=== PATIENT | female | born 1930 | race Caucasian/White ===

== ENCOUNTER 2019-11-27 10:17 | Inpatient (IN) ==
--- OUTSIDE RECORDS SUMMARY | 2019-11-27 10:22 | External Medical Summary | Continuity of Care Document ---
:1930 Author Name [employer] M.D. 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 Refills: 0 TEGretol 200 MG Oral Tablet; TAKE TABLET 2 Tablets in AM 1 Tablet PM , M.D. Refills: 0 Felodipine ER 10 MG Oral Tablet Extended Release 24 Hour; TAKE 1 TABLET ONCE DAILY. , M.D. Refills: 0 K-Dur 10 MEQ TBCR; TAKE 1 TABLET TWICE DAILY. , M.D. Refills: 0 Lasix 40 MG Oral Tablet; TAKE 1 TABLET DAILY. , M.D. Refills: 0 Toprol XL 200 MG Oral Tablet Extended Re lease 24 Hour; TAKE 1 TABLET ONCE DAILY. , M.D. Refills: 0 Zocor 40 MG Oral Tablet; TAKE 1 TABLET DAILY. , M.D. Refills: 0 Procedures Procedures not documented Immunizations Immunizations not documented Social History - Smoking Status Never smoked tobacco Interventions Labs/Procedures/ImagingCT (Chest) Thorax with Contrast; Done: 12 Feb 2013 Plan of Treatment Planned Observations Planned Goals not documented Results No Known Results Results not documented
[2019-11-27] MEDS ORDERED: LORazepam 0.5 MG/1 ML VIAL IV STA (10:44)
--- NOTE | 2019-11-27 10:47 | CT Scan Report ---
CT SCAN OF THE BRAIN WITHOUT IV CONTRAST CLINICAL HISTORY: Strokelike symptoms. Change in mental status. Syncope. COMPARISON STUDY: No priors. TECHNIQUE: Unenhanced axial CT scan of the brain is performed from the vertex to the skull base. A do se lowering technique was utilized adhering to the principles of ALARA. FINDINGS: Brain parenchyma: There are age-related involutional changes noting mild subcortical and periventric ular microangiopathic change. There is no hemorrhage, mass effect, or evidence of acute territorial i schemia by CT criteria. 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 Pablo-w reji matter differentiation is preserved. No extra-axial fluid collection is seen. Ventricles, sulci, cisterns: Prominent secondary to involutional change. Intracranial vasculature: There is atherosclerotic calcification of the cavernous carotid and vertebr al arteries. Calvarium: Post craniectomy change noted in the right occipital bone. The calvarium is otherwise inta ct. Soft tissues: A 2.3 cm calcified sebaceous cyst is noted in the left frontal scalp. Sinuses and mastoids: The visualized paranasal sinuses are clear. There is a large right mastoid effu carolyn. The left mastoid air cells are well pneumatized. Orbits: The bony orbits are grossly intact. There are bilateral ocular lens implants. IMPRESSION: There is no hemorrhage, mass effect, or evidence of acute territorial ischemia by CT rodriguez appiah. ACT 112: Negative or not required by law. Electronically signed by: Jose Armando Toth M.D. 11/27/2019 10:46 AM
[2019-11-27] MEDS ORDERED: OPTIRAY 320 125ml IV PRN (10:50)
--- NOTE | 2019-11-27 11:01 | CT Scan Report ---
CT ANGIOGRAM OF THE BRAIN; CT ANGIOGRAM OF THE NECK CLINICAL HISTORY: Syncope. Change in mental status. COMPARISON STUDY: Unenhanced CT of the brain performed the same day 11/27/2019. TECHNIQUE: Following the IV administration of 119 of Optiray 320, CT angiogram of the head and neck w as performed from the aortic arch to the vertex. Images are reviewed in the axial, sagittal, and agustin nal planes. 3-D MIPS images are created and assessed. IV contrast was administered without complicati on. All measurements were calculated based on NASCET criteria. A dose lowering technique was utilize d adhering to the principles of ALARA. The examination is modestly degraded by motion artifact. CT DOSE: 1571.22 mGy.cm FINDINGS: Brain parenchyma: There is age-related involutional change noting mild subcortical and periventricula r microangiopathic disease. There is no hemorrhage, mass effect, or evidence of acute territorial isc hemia by CT criteria. There is no evidence of enhancing mass lesion on the angiogram phase images. Th e ventricles, sulci, and cisterns are prominent secondary to involutional change. Pablo-white matter d ifferentiation is preserved. No extra-axial fluid collection is seen. Thoracic aorta: There is advanced atherosclerotic calcification of the thoracic aorta. Visualized por tions of the thoracic aorta are normal in caliber. The aortic arch demonstrates standard 3-vessel dorita zafar. Right carotid arterial system: The right common carotid artery is widely patent, as are the right int ernal and external carotid arteries. There is tortuosity of the distal internal carotid artery. Left carotid arterial system: The left common carotid artery is widely patent, as are the left medical assistant internal medicine al and external carotid arteries. Vertebral arteries: The vertebral arteries are widely patent and codominant. Subclavian arteries: Widely patent bilaterally. Intracranial vasculature: There is evidence carotid calcification of the cavernous carotid and verteb ral arteries. There is tortuosity of the cavernous carotid arteries. The internal carotid arteries ar e patent at the skull base, as are the anterior and middle cerebral arteries bilaterally. The vertebr obasilar system and posterior cerebral arteries are widely patent. The left vertebral artery is domin ant. There is no aneurysm, high-grade stenosis, or focal vessel cut off seen throughout the intracran ial circulation. Jugular veins: Patent bilaterally. Dural sinuses: Patent. Lung apices: Chronic interstitial change is noted in the upper lobes. The upper lobe lung parenchyma is otherwise clear as imaged. Soft tissues: A 2.3 cm calcified sebaceous cyst is noted in the left frontal scalp. The visualized ph aryngeal soft tissues are normal in appearance noting angiographic phase technique. The oropharyngeal airway appears widely patent. The salivary and thyroid glands are normal in appearance. No cervical lymphadenopathy is seen. Skeletal structures: The skeletal structures are osteopenic. Post craniectomy change is noted in the right occipital bone. No destructive calvarial lesion is identified. The cervical spine is maintained noting multilevel spondylosis. No lytic or blastic lesion is seen. Sinuses and mastoids: The paranasal sinuses are clear. There is a large right mastoid effusion with f luid in the right middle ear. The left mastoid air cells are well pneumatized. IMPRESSION: 1. There is no hemorrhage, mass effect, or evidence of acute territorial ischemia by CT criteria noti ng angiographic phase technique. 2. Unremarkable CT and radiograph of the neck. 3. Unremarkable CT angiogram of the brain. 4. There is a large right mastoid effusion and fluid within the right middle ear. 5. Post craniectomy change is noted in the right occipital bone. ACT 112: Negative or not required by law. Electronically signed by: Jose Armando Toth M.D. 11/27/2019 10:59 AM
--- NOTE | 2019-11-27 11:05 | Emergency Department Note ---
History of Present Illness General Chief complaint: Altered Mental Status Stated complaint: AMS/WEAKNESS Time Seen by Provider: 11/27/19 10:20 Source: patient, family (I talked to the daughter first on the telephone and then later when she arrived) and EMS Mode of arrival: EMS Limitations: altered mental status History of Present Illness This patient is an 89-year-old white female who is brought in after an altered mental status and syncope. She apparently had a syncopal episode and when the paramedics arrived she was back to her normal self and did not want to come to the hospital. They called me for medical command and during this she had another syncopal episode and got confused so they brought her here. Initially upon arrival she was combative and confused but moving all 4 extremities. She is on Xarelto and the concern was to rule out a head bleed so we took her straight to CAT scan after initially evaluating her. Home Medications Home Medications Medication Instructions Recorded Confirmed Type felodipine 2.5 mg PO DAILY 11/27/19 11/27/19 History furosemide 40 mg PO 5XWK 11/27/19 11/27/19 History magnesium oxide 400 mg PO DAILY 11/27/19 11/27/19 History metoprolol succinate 150 mg PO DAILY 11/27/19 11/27/19 History fqyrczid-qci-YR-lycopen-lutein 1 tab PO DAILY 11/27/19 11/27/19 History [Centrum Silver] potassium chloride 20 meq PO DAILY 11/27/19 11/27/19 History rivaroxaban [Xarelto] 15 mg PO QDD 11/27/19 11/27/19 History Allergies Allergy/AdvReac Type Severity Reaction Status Date / Time No Known Allergies Allergy Unknown NONE Verified 11/27/19 11:21 Past Med/Surg History Medical History (Updated 11/27/19 @ 14:48 by Hardeep Slater MD) Bilateral carotid artery stenosis Chronic atrial fibrillation Chronic interstitial lung disease CKD (chronic kidney disease), stage III Diastolic dysfunction Dyslipidemia Hypertension Senile osteoporosis Subclinical hypothyroidism Trigeminal neuralgia Social History (Updated 11/27/19 @ 14:09 by Hardeep Slater MD) Preferred Language: Kyrgyz marital status: Current Living Situation: Spouse Feels Safe at Home: Yes Smoking Status: Unknown if ever smoked Hx Alcohol Use: Yes Immunizations: Past medical history includes chronic A. fib, with anticoagul ation Hypertension Social history: She lives at home with her and is responsible for his ca re and has been stressful for her. She does drink alcohol and her daughter thinks she has been drinking more lately Review of Systems Unobtainable due to cognitive status Initially the patient was altered and I could not do any review of systems. L ater as the patient improved I did do a review of systems and a total of 10 systems were reviewed and otherwise negative Physical Exam Vital Signs Vital Signs - 24 hr 11/27/19 10:20 11/27/19 10:41 11/27/19 11:56 Temperature 37.1 C Temperature Source Oral Pulse Rate 138 H 139 H 91 H Pulse Rate from SpO2 Sensor 95 H Respiratory Rate 20 25 H 23 Blood Pressure 157/98 H 157/98 H 154/85 H Blood Pressure Mean 117 108 99 Pulse Oximetry 96 93 Oxygen Delivery Method Room Air 11/27/19 12:30 11/27/19 13:00 11/27/19 13:30 Temperature Temperature Source Pulse Rate 85 89 84 Pulse Rate from SpO2 Sensor 86 92 H Respiratory Rate 20 17 22 Blood Pressure Blood Pressure Mean Pulse Oximetry 96 98 Oxygen Delivery Method 11/27/19 13:56 11/27/19 14:00 Temperature Temperature Source Pulse Rate 81 85 Pulse Rate from SpO2 Sensor 81 85 Respiratory Rate 20 30 H Blood Pressure 148/84 H 155/77 H Blood Pressure Mean 124 89 Pulse Oximetry 96 95 Oxygen Delivery Method Room Air Room Air General: Well developed well nourished combative older female who appears to move all 4 extremities she is agitated but appears to be speaking normally but is not directable and in no acute distress, breathing comfortably on room air. Normal speech HEENT: Normal cephalic atraumatic. Pupils are equal round and reactive to light. Extraocular movements are intact. Oropharynx is pink with moist mucous membranes. No swelling of the mouth lips or tongue. Neck: Supple with a midline trachea. No meningeal signs or stiffness, no JVD or bruits. No Stridor. Chest: Clear to auscultation bilaterally. No wheezes or rhonchi. No increased work of breathing. Heart: Regular rate and rhythm without murmurs or gallops. Abdomen: Soft nontender, nondistended without rebound guarding or rigidity. Extremities: No cyanosis clubbing or edema. No calf tenderness or assymetry Spine/Back. Non tender to palpation. No CVA tenderness Skin: Good turgor without rashes. Neurologic exam: Cranial nerves two through 12 are intact. Motor and sensation are intact and symmetrical throughout. Course Administered Medications Potassium Chloride (K Jaime / Wtr) 10 meq in 100 mls @ 100 mls/hr IV Q1H ISABEL Stop: 11/27/19 14:44 Last Admin: 11/27/19 14:00 Dose: 100 mls/hr Documented by: [id number] Infusion: 11/27/19 13:55 Dose: 0 mls/hr Documented by: [id number] Admin: 11/27/19 13:00 Dose: 100 mls/hr Documented by: [id number] Ioversol (Optiray 320 125ml) 119 ml IV ONCE PRN PRN Reason: Interaction Checking Stop: 12/01/19 10:49 Last Admin: 11/27/19 10:50 Dose: 119 ml Documented by: [id number] Discontinued Medications Lorazepam (Ativan) 0.5 mg in 1 mls @ 1 mls/min IV NOW STA Stop: 11/27/19 10:45 Last Admin: 11/27/19 10:49 Dose: 1 mls/min Documented by: [id number] Potassium Chloride (K Jaime / Wtr) Confirm Administered Dose 10 meq IV .STK-MED ONE Stop: 11/27/19 12:56 Last Admin: 11/27/19 13:00 Dose: Not Given Documented by: [id number] Critical Care Time Critical Care Time: Yes Total Critical Care Time: 30 Due to the patient's agitation altered mental status and need for frequent reassessment, discussion with the paramedics as well as the daughter and need for medication and monitoring, I have personally spent greater than 30 minutes of critical care time in the direct management of this patient. This includes bedside care, interpretation of diagnostic studies, and testing, discussion with consultants, patient, and family members, and other required patient management activities. This 30 minutes is in excess of all separately billable procedures. Medical Decision Making Differential Diagnosis Intracranial hemorrhage, CVA, trauma, arrhythmia, syncope, electrolyte or metabolic abnormality, infection, vascular disease, toxicologic, anxiety, Covid Medical Records Attestation: I reviewed the patient's medical records. Home Medications Current Medication List: was personally reviewed by me Laboratory Data Attestation: I reviewed the patient's lab results. Result diagrams: 11/27/19 10:56 11/27/19 10:56 Lab Results 11/27/19 11/27/19 11/27/19 Range/Units 10:56 10:56 10:56 WBC 6.23 (4.8-10.8) K/uL RBC 3.85 L (4.2-5.4) M/uL Hgb 13.1 (12.0-16.0) g/dL Hct 38.8 (37-47) % MCV 100.8 H (80-100) fL MCH 34.0 (25-34) pg MCHC 33.8 (32-36) g/dL RDW Std Deviation 53.7 H (36.4-46.3) fL RDW Coeff of Serenity 14.7 H (11.5-14.5) % Plt Count 259 (130-400) K/uL MPV 10.2 (7.4-10.4) fL Immature Gran % (Auto) 0.2 % Neut % (Auto) 70.9 % Lymph % (Auto) 19.6 % [place] % (Auto) 9.1 % Eos % (Auto) 0.0 % Baso % (Auto) 0.2 % Neut # (Auto) 4.42 (1.4-6.5) K/uL Lymph # (Auto) 1.22 (1.2-3.4) K/uL [place] # (Auto) 0.57 (0.11-0.59) K/uL Eos # (Auto) 0.00 (0-0.5) K/uL Baso # (Auto) 0.01 (0-0.2) K/uL Immature Gran # (Auto) 0.01 (0.00-0.02) K/uL PT 11.4 (9.0-12.0) Seconds INR 1.1 (0.9-1.1) APTT 29.4 (21.0-31.0) Seconds PTT Ratio 1.1 Sodium (136-145) mmol/L Potassium (3.5-5.1) mmol/L Chloride (98-107) mmol/L Carbon Dioxide (21-32) mmol/L Anion Gap (3-11) BUN (7-18) mg/dl Creatinine (0.6-1.2) mg/dl Est Cr Clr Drug Dosing ml/min Est GFR ( Amer) Est GFR (Non-Af Amer) BUN/Creatinine Ratio (10-20) Glucose (70-99) mg/dl Calcium (8.5-10.1) mg/dl Phosphorus (2.5-4.9) mg/dl Magnesium (1.8-2.4) mg/dl Total Bilirubin (0.2-1) mg/dl Direct Bilirubin (0-0.2) mg/dl AST (15-37) U/L ALT (12-78) U/L Alkaline Phosphatase (45-117) U/L Troponin I (0-0.045) ng/ml NT-Pro-B Natriuret Pep (0-1800) pg/ml Total Protein (6.4-8.2) gm/dl Albumin (3.4-5.0) gm/dl Globulin (2.5-4.0) gm/dl Albumin/Globulin Ratio (0.9-2) Vitamin B12 (211-911) pg/ml Folate (>5.38) ng/ml Urine Color Urine Appearance (Clear) Urine pH (4.5-7.5) Ur Specific Pierce (1.000-1.030) Urine Protein (Negative) Urine Glucose (UA) (Negative) Urine Ketones (Negative) Urine Blood (Negative) Urine Nitrite (Negative) Urine Bilirubin (Negative) Urine Urobilinogen (Negative) Ur Leukocyte Esterase (Negative) Ethyl Alcohol mg/dL (0-3) mg/dl Blood Type O Positive Antibody Screen NEGATIVE 11/27/19 11/27/19 11/27/19 Range/Units 10:56 10:56 10:56 WBC (4.8-10.8) K/uL RBC (4.2-5.4) M/uL Hgb (12.0-16.0) g/dL Hct (37-47) % MCV (80-100) fL MCH (25-34) pg MCHC (32-36) g/dL RDW Std Deviation (36.4-46.3) fL RDW Coeff of Serenity (11.5-14.5) % Plt Count (130-400) K/uL MPV (7.4-10.4) fL Immature Gran % (Auto) % Neut % (Auto) % Lymph % (Auto) % [place] % (Auto) % Eos % (Auto) % Baso % (Auto) % Neut # (Auto) (1.4-6.5) K/uL Lymph # (Auto) (1.2-3.4) K/uL [place] # (Auto) (0.11-0.59) K/uL Eos # (Auto) (0-0.5) K/uL Baso # (Auto) (0-0.2) K/uL Immature Gran # (Auto) (0.00-0.02) K/uL PT (9.0-12.0) Seconds INR (0.9-1.1) APTT (21.0-31.0) Seconds PTT Ratio Sodium 135 L (136-145) mmol/L Potassium 3.2 L (3.5-5.1) mmol/L Chloride 98 (98-107) mmol/L Carbon Dioxide 25 (21-32) mmol/L Anion Gap 12.0 H (3-11) BUN 7 (7-18) mg/dl Creatinine 0.93 (0.6-1.2) mg/dl Est Cr Clr Drug Dosing 33.7 ml/min Est GFR ( Amer) 64.0 Est GFR (Non-Af Amer) 55.3 BUN/Creatinine Ratio 7.9 L (10-20) Glucose 132 H (70-99) mg/dl Calcium 8.1 L (8.5-10.1) mg/dl Phosphorus 2.8 (2.5-4.9) mg/dl Magnesium 2.0 (1.8-2.4) mg/dl Total Bilirubin 0.7 0.7 (0.2-1) mg/dl Direct Bilirubin 0.2 (0-0.2) mg/dl AST 26 26 (15-37) U/L ALT 26 27 (12-78) U/L Alkaline Phosphatase 98 97 (45-117) U/L Troponin I < 0.015 (0-0.045) ng/ml NT-Pro-B Natriuret Pep 2048 H (0-1800) pg/ml Total Protein 6.7 6.7 (6.4-8.2) gm/dl Albumin 3.0 L 3.0 L (3.4-5.0) gm/dl Globulin 3.7 (2.5-4.0) gm/dl Albumin/Globulin Ratio 0.8 L (0.9-2) Vitamin B12 (211-911) pg/ml Folate (>5.38) ng/ml Urine Color Urine Appearance (Clear) Urine pH (4.5-7.5) Ur Specific Pierce (1.000-1.030) Urine Protein (Negative) Urine Glucose (UA) (Negative) Urine Ketones (Negative) Urine Blood (Negative) Urine Nitrite (Negative) Urine Bilirubin (Negative) Urine Urobilinogen (Negative) Ur Leukocyte Esterase (Negative) Ethyl Alcohol mg/dL (0-3) mg/dl Blood Type Antibody Screen 11/27/19 11/27/19 11/27/19 Range/Units 11:28 11:52 14:04 WBC (4.8-10.8) K/uL RBC (4.2-5.4) M/uL Hgb (12.0-16.0) g/dL Hct (37-47) % MCV (80-100) fL MCH (25-34) pg MCHC (32-36) g/dL RDW Std Deviation (36.4-46.3) fL RDW Coeff of Serenity (11.5-14.5) % Plt Count (130-400) K/uL MPV (7.4-10.4) fL Immature Gran % (Auto) % Neut % (Auto) % Lymph % (Auto) % [place] % (Auto) % Eos % (Auto) % Baso % (Auto) % Neut # (Auto) (1.4-6.5) K/uL Lymph # (Auto) (1.2-3.4) K/uL [place] # (Auto) (0.11-0.59) K/uL Eos # (Auto) (0-0.5) K/uL Baso # (Auto) (0-0.2) K/uL Immature Gran # (Auto) (0.00-0.02) K/uL PT (9.0-12.0) Seconds INR (0.9-1.1) APTT (21.0-31.0) Seconds PTT Ratio Sodium (136-145) mmol/L Potassium (3.5-5.1) mmol/L Chloride (98-107) mmol/L Carbon Dioxide (21-32) mmol/L Anion Gap (3-11) BUN (7-18) mg/dl Creatinine (0.6-1.2) mg/dl Est Cr Clr Drug Dosing ml/min Est GFR ( Amer) Est GFR (Non-Af Amer) BUN/Creatinine Ratio (10-20) Glucose (70-99) mg/dl Calcium (8.5-10.1) mg/dl Phosphorus (2.5-4.9) mg/dl Magnesium (1.8-2.4) mg/dl Total Bilirubin (0.2-1) mg/dl Direct Bilirubin (0-0.2) mg/dl AST (15-37) U/L ALT (12-78) U/L Alkaline Phosphatase (45-117) U/L Troponin I (0-0.045) ng/ml NT-Pro-B Natriuret Pep (0-1800) pg/ml Total Protein (6.4-8.2) gm/dl Albumin (3.4-5.0) gm/dl Globulin (2.5-4.0) gm/dl Albumin/Globulin Ratio (0.9-2) Vitamin B12 1914 H (211-911) pg/ml Folate > 24.00 (>5.38) ng/ml Urine Color Yellow Urine Appearance Clear (Clear) Urine pH 7.5 (4.5-7.5) Ur Specific Pierce 1.021 (1.000-1.030) Urine Protein Negative (Negative) Urine Glucose (UA) Negative (Negative) Urine Ketones Negative (Negative) Urine Blood Negative (Negative) Urine Nitrite Negative (Negative) Urine Bilirubin Negative (Negative) Urine Urobilinogen Negative (Negative) Ur Leukocyte Esterase Negative (Negative) Ethyl Alcohol mg/dL 24.0 H (0-3) mg/dl Blood Type Antibody Screen ECG Data Attestation: I personally reviewed and interpreted this ECG as follows: Indication: + altered mental status Rate (beats per minute): 85 Rhythm: + atrial fibrillation ECG Intervals/blocks: + Normal QRS ECG [place]: + Normal ECG ST segments: + Nonspecific ST abnormalities (There are nonspecific ST and T wave abnormalities inferiorly and laterally) ECG Findings: no PACs and no PVCs Comparison ECG Date: from (11/12/08) Change: the following changes noted (A. fib has replaced normal sinus rhythm and ST and T wave abnormalities are now present) Blood Pressure Blood Pressure Findings: Elevated blood pressure Blood Pressure Disposition: further management by hospitalist MDM Narrative This patient comes in as described above. She had presented after having a sync opal episode but then initially refused ambulance transport. I did talk to the crm consultant and while doing so she had another episode and became combative. In light of this ,they did bring her here. Upon arrival she was combative and hard to focus she moves all 4 extremities given the fact that she had altered mental status on Xarelto, I was concerned that she could have had a stroke or intracranial hemorrhage we moved quickly to get her to the CAT scan her. Blood sugar was normal as checked by the ambulance. I did discuss case with Dr. Casiano initially from [facility] who recommended we do the CTA as well. CAT scan the head as well as CT of the head and neck do not show any acute findings. When the patient came back from CAT scan she still seemed very agitated and anxious. I gave her 0.5 mg IV Ativan with the thought process that this will cover for anxiety as well as give her some sedation and help with the potential alcohol withdrawal or postictal state. Almost immediately after receiving Ativan, she got better. She has been very stressed lately talking to the daughter she is been overwhelmed taking care of the and also with the COVID. She is also been drinking more alcohol lately. Her heart rate slowed down and she was found to have an A. fib that was rate controlled without any definite ischemic changes. She has no fever or white count to suggest infection. She has no significant electrolyte or metabolic abnormalities. Urinalysis does not suggest a UTI. She remained stable and is doing much better. This may have just been anxiety and more of a nervous breakdown type situation but it could have also been related to something intracranial such as seizure/postictal or cardiac related. I do think she should be admitted/observed for further evaluation monitoring. I have consulted the [facility] hospitalist to see her in the ER for these measures. Daughter is also at the bedside and agrees with the plan Continuous cardiac monitoring: An order was placed in the E HR for continuous cardiac monitoring. The patient was noted to have atrial fibrillation with rapid ventricular response with a heart rate of approximately 130, note she was agitated during this. Impression & Plan Altered mental status, Agitation, Syncope, Atrial fibrillation with rapid ventricular response, Anxiety Discharge Plan Visit Data Chief Complaint: Altered Mental Status Stated Complaint: AMS/WEAKNESS ED Provider: Jorge Fry Discharge Problem: Altered mental status, Agitation, Syncope, Atrial fibrillation with rapid ventricular response, Anxiety Discharge Instructions Interventions: ED Discharge Assessment Last Done: 11/27/19 14:30 Forms Stand Alone Forms: [facility] Prescriptions Prescriptions: No Action furosemide 40 mg tablet 40 mg PO [id number] RF: 0 felodipine 2.5 mg tablet extended release 24 hr 2.5 mg PO DAILY RF: 0 metoprolol succinate 100 mg tablet extended release 24 hr 150 mg PO DAILY RF: 0 potassium chloride 20 mEq tablet,ER particles/crystals 20 meq PO DAILY RF: 0 Centrum Silver 0.4-300-250 mg-mcg-mcg Tablet 1 tab PO DAILY RF: 0 Xarelto 15 mg tablet 15 mg PO QDD RF: 0 magnesium oxide 400 mg magnesium Tablet 400 mg PO DAILY RF: 0 Referrals Referrals: Shirley Wilder [Primary Care Provider] -
[2019-11-27 11:08] LABS: Basophils # (auto) 0.01 K/uL (0-0.2); Basophils % (auto) 0.2 %; Hematocrit (blood only) 38.8 % (37-47); Hemoglobin 13.1 g/dL (12.0-16.0); Immature Granulocytes # (auto) 0.01 K/uL (0.00-0.02); Immature Granulocytes % (auto) 0.2 %; Lymphocytes # (auto) 1.22 K/uL (1.2-3.4); Lymphocytes % (auto) 19.6 %; Mean Corpuscular Hgb Conc 33.8 g/dL (32-36); Mean Corpuscular Volume 100.8 fL (80-100); Mean Platelet Volume 10.2 fL (7.4-10.4); Monocytes # (auto) 0.57 K/uL (0.11-0.59); Monocytes % (auto) 9.1 %; Neutrophils # (auto) 4.42 K/uL (1.4-6.5); Neutrophils % (auto) 70.9 %; Platelet Count 259 K/uL (130-400); RDW Coefficient of Variation 14.7 % (11.5-14.5); RDW Standard Deviation 53.7 fL (36.4-46.3); Red Blood Count 3.85 M/uL (4.2-5.4); White Blood Count 6.23 K/uL (4.8-10.8)
[2019-11-27 11:23] LABS: INR 1.1 (0.9-1.1); Partial Thromboplastin Ratio 1.1; Partial Thromboplastin Time 29.4 Seconds (21.0-31.0); Prothrombin Time 11.4 Seconds (9.0-12.0)
[2019-11-27 11:32] LABS: Alanine Aminotransferase 26 U/L (12-78); Aspartate Aminotransferase 26 U/L (15-37); BUN Creatinine Ratio 7.9 (10-20); Blood Urea Nitrogen 7 mg/dl (7-18); Calcium 8.1 mg/dl (8.5-10.1); Carbon Dioxide 25 mmol/L (21-32); Chloride 98 mmol/L (98-107); Creatinine Clr Calc Pharmacy 33.7 ml/min; Est GFR (Non-African American) 55.3; Glucose 132 mg/dl (70-99); Potassium 3.2 mmol/L (3.5-5.1); Sodium 135 mmol/L (136-145)
[2019-11-27 11:37] LABS: Albumin Globulin Ratio 0.8 (0.9-2); Alkaline Phosphatase 98 U/L (45-117); Bilirubin,Total 0.7 mg/dl (0.2-1); Globulin 3.7 gm/dl (2.5-4.0); Total Protein 6.7 gm/dl (6.4-8.2); Troponin I < 0.015 ng/ml (0-0.045)
[2019-11-27 12:22] LABS: Appearance Urine Clear (Clear); Bilirubin Urine Negative (Negative); Blood Urine Negative (Negative); Color Urine Yellow; Glucose Urine UA Negative (Negative); Ketones Urine Negative (Negative); Leukocyte Esterase Urine Negative (Negative); Nitrite Urine Negative (Negative); Protein Urine Negative (Negative); Specific Gravity Urine 1.021 (1.000-1.030); Urobilinogen Urine Negative (Negative); pH Urine 7.5 (4.5-7.5)
--- NOTE | 2019-11-27 12:53 | Electrocardiogram Report ---
Test Reason : Blood Pressure : / mmHG Vent. Rate : 085 BPM Atrial Rate : 089 BPM P-R Int : 000 ms QRS Dur : 084 ms QT Int : 404 ms P-R-T Axes : 000 070 028 degrees QTc Int : [address] depression consider inferolateral ischemia Abnormal ECG When compared with ECG of 12-DEC-2008 11:05, Atrial fibrillation has replaced Sinus rhythm Vent. rate has increased BY 30 BPM Nonspecific T wave abnormality now evident in Inferior leads T wave inversion no longer evident in Anterolateral leads QT has lengthened Confirmed by Rex Pinto ([id number]) on 11/27/2019 12:53:37 PM Referred By: REFERRED SELF Confirmed By:Rex Pinto
[2019-11-27] MEDS ORDERED: POTASSIUM CHLORIDE 10 MEQ / 100ML WTR IV ONE (12:55)
[2019-11-27] MEDS: POTASSIUM CHLORIDE / WTR 10 MEQ/100 ML PLCT IV SCH ×2 (13:00→14:00)
[2019-11-27] MEDS ORDERED: SODIUM CHLORIDE 0.9% 500 ML IV ONE (13:00)
[2019-11-27 13:21] LABS: Phosphorus 2.8 mg/dl (2.5-4.9)
[2019-11-27] MEDS ORDERED: LORazepam 1 MG/2 ML VIAL IV PRN ×2 (13:34)
[2019-11-27] MEDS ORDERED: LORazepam 3 MG/6 ML VIAL IV PRN (13:34)
[2019-11-27] MEDS ORDERED: LORazepam 2 MG/4 ML VIAL IV PRN (13:34)
[2019-11-27] MEDS ORDERED: LORazepam 1 MG TAB PO PRN ×2 (13:34)
[2019-11-27] MEDS ORDERED: ATIVAN IV ALCOHOL WITHDRAWL IV PRN (13:34)
[2019-11-27] MEDS ORDERED: POLYETHYLENE (MIRALAX) 17 GM PACK PO PRN (13:36)
[2019-11-27] MEDS ORDERED: ACETAMINOPHEN 325 MG TAB PO PRN (13:36)
--- NOTE | 2019-11-27 14:01 | History & Physical Report ---
Date of Service November 27, 2019 Assessment & Plan (1) Altered mental status: CT head, CTA of head and neck negative Blood cultures pending UA negative Alcohol blood level 24 proBNP 1999, chest x-ray with atelectasis and worsening interstitial lung disease At this point unclear etiology of her altered mental status -We will obtain MRI, and may consider EEG -We will monitor closely on telemetry, will obtain echo and carotid artery Doppler -May have odin secondary to alcohol use -We will place her on Ativan withdrawal protocol -We will await blood cultures -We will start vitamin supplementation, thiamine, folic acid, and vitamin B12 as her MCV is elevated -We will replace electrolytes, patient was found hypokalemic in ED -We will consider to consult neurology, if no clear explanation revealed (2) Hypokalemia: -Potassium 3.2 in ED -Likely due to Lasix use, and poor appetite -Replace and monitor -Magnesium level 2.0 on admission (3) Chronic atrial fibrillation: -Continue home metoprolol and Xarelto -Patient follows with [facility] cardiology, Juan Snowden/Dr. Hernandez -Currently rate controlled (4) Hypertension: -Continue felodipine, and furosemide -Continue to monitor (5) Dyslipidemia: -Continue home rosuvastatin (was on 40 mg daily, then switched to 20 mg by cardiology in July) (6) Bilateral carotid artery stenosis: -Patient has history of bilateral carotid stenosis, asymptomatic -We will obtain carotid artery ultrasound/Doppler to further evaluate if this could be causing her symptoms (7) CKD (chronic kidney disease), stage III: -Current creatinine 0.9, continue to monitor -Try to avoid nephrotoxic agents and contrast if possible -Patient underwent CTA earlier today (8) Mastoid disorder: -large right mastoid effusion and fluid within the right middle ear and Po st craniectomy change is noted in the right occipital bone on CT head -Per daughter, patient had surgery for trigeminal neuralgia about 15 years ago -She also only uses hearing aid on one ear, (per patient it is left ear), and the other one she has "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, but not ENT, recommend outpatient ENT follow-up/or inpatient consultation, if brain MRI different/concerning from prior -White blood cell count is not elevated, and patient is currently not complaining about any ear pain or headache, therefore for now will hold off antibiotic (9) Diastolic dysfunction: -History of CHF with diastolic dysfunction, on lisinopril -Continue lisinopril -Check echocardiogram -Monitor fluid status -Chest x-ray show some atelectasis and worsening interstitial lung disease -proBNP in ED ~ 1999 -Patient euvolemic on physical exam CODE STATUS DNR/DNI, discussed with the patient at the bedside DVT ppx: On chronic Xarelto for A. fib Disposition: PCU for now, will obtain PT OT for further assessment, but likely home when medically stable History of Present Illness Chief Complaint: Altered mental status Primary Care Provider: Shirley Wilder Mrs. Rivera is a 89-year-old female, with history of hypertension, dyslipide paulino, subclinical hypothyroidism, CKD stage III, bilateral carotid stenosis, chronic A. 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 Patient lives upstairs in her house, and her lives downstairs. 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 She checks his blood sugar levels and email these values to her daughter Maria Luz, who lives about 1 and half miles away. She does this daily however this morning she did not write to her daughter and therefore daughter became concerned. She came to her house and checked on her. She was let into the house by her father, and he reported that Mrs. Rivera never came downstairs. Daughter Maria Luz came upstairs, and her mom was wobbly walking, and told her that she "did not know what was happening around her and that something was wrong." Maria Luz reports that patient had couple glasses of wine last evening, and thought that maybe her mother was little dehydrated, and gave her 2 glasses of water. Patient did not feel herself and so they called the ambulance. When an ambulance came, patient refused to go and was combative, then she laid down in position and was saying that she "does not care", and was not responding to EMS staff. However Maria Luz reports that when she was tickling her feet, patient responded. Reportedly patient was also combative in the emergency room, and received 0.5 mg of IV Ativan, then she calmed down and was pleasant and cooperative. In the ED, she underwent CT head, and CTA of head and neck, both were negative. She was hypokalemic with potassium 3.2. On my evaluation, patient is sitting up in bed, in no acute distress. She is pleasant and cooperative and answers questions appropriately. She reports that she has issues with remembering things, and "forgets a lot lately". She says that she has to write things down especially about upcoming appointments with her girlfriends. However denies any fevers, chills, chest pain, shortness of breath, palpitations, headaches. She denies any sick contacts. Denies any abdominal pain, nausea or vomiting. States that her appetite has been poor. She denies any dysuria, or issues with bowel movements. Had normal bowel movement yesterday. Full history obtained from patient, ED staff, and daughter Maria Luz over the phone. Allergies Allergy/AdvReac Type Severity Reaction Status Date / Time No Known Allergies Allergy Unknown NONE Verified 11/27/19 11:21 Home Medications Home Medications Medication Instructions Recorded Confirmed Type felodipine 2.5 mg PO DAILY 11/27/19 11/27/19 History furosemide 40 mg PO [id number] 11/27/19 11/27/19 History magnesium oxide 400 mg PO DAILY 11/27/19 11/27/19 History metoprolol succinate 150 mg PO DAILY 11/27/19 11/27/19 History kitbwkwd-uer-KV-lycopen-lutein 1 tab PO DAILY 11/27/19 11/27/19 History [Centrum Silver] potassium chloride 20 meq PO DAILY 11/27/19 11/27/19 History rivaroxaban [Xarelto] 15 mg PO QDD 11/27/19 11/27/19 History Past Med/Surg History Medical History (Updated 11/27/19 @ 16:20 by Hardeep Slater MD) Bilateral carotid artery stenosis Chronic atrial fibrillation Chronic interstitial lung disease CKD (chronic kidney disease), stage III Diastolic dysfunction Dyslipidemia History of perforation of tympanic membrane Hypertension Mastoid disorder Senile osteoporosis Subclinical hypothyroidism Trigeminal neuralgia Surgical History (Updated 11/27/19 @ 16:16 by Hardeep Slater MD) History of uterine suspension procedure Status post craniectomy Family History (Updated 11/27/19 @ 16:17 by Hardeep Slater MD) Father Stroke at age 69 Mother , at age 85 Rheumatoid arthritis Social History (Updated 11/27/19 @ 14:09 by Hardeep Slater MD) Preferred Language: [place] Planet[employer] Techn[employer] Required: No Beliefs That Will Affect Care: None marital status: Current Living Situation: Spouse Other Information That Helps Us Care for You: No Feels Safe at Home: Yes Safety Concerns: Feels Safe At This Time Smoking Status: Never smoker Hx Alcohol Use: Yes Alcohol type: wine Hx Substance Use: No Review of Systems Review of Systems: All systems reviewed & are unremarkable except as noted in HPI & below Constitutional: no fever and no chills Eyes: no problem reported Ear, Nose, Mouth, Throat: no problem reported Respiratory: no cough and no dyspnea Cardiovascular: no chest pain, no palpitations and no edema Gastrointestinal: no abdominal pain, no nausea, no vomiting and no diarrhea/loose stools Genitourinary: no dysuria, no hematuria and no problem reported Musculoskeletal: no problem reported Integumentary: no problem reported Neurologic: no problem reported Psychiatric: no problem reported Endocrine: no problem reported Hematologic / Lymphatic: no problem reported Allergy / Immunological: no problem reported Physical Exam Physical Exam: Elderly female, sitting up in bed, in no acute distress Constitutional: WD/WN, vitals as above no acute distress Eyes: PERRL, conjunctivae normal, anicteric sclerae EOM intact bilaterally ENMT: external ear and nose normal, oropharynx normal Neck: trachea midline, no thyromegaly normal visual inspection Respiratory: normal respiratory effort, lungs clear to auscultation Auscultation: + rhonchi (Mild diffuse on the left); no crackles and no wheezes Cardiovascular: Heart Sounds: no murmur Irregularly irregular Chest (Breasts): Chest: normal inspection of chest Gastrointestinal (Abdomen): normal bowel sounds, soft, nontender, no hepatosplenomegaly Inspection/Auscultation: abdomen normal to inspection; abdomen not distended Percussion/Palpation: no guarding and abdomen not rigid Musculoskeletal: no cyanosis or clubbing, extremities motor strength 5/5 Head/Neck/Chest: head atraumatic and neck supple Extremities: extremities normal to inspection Skin: no rashes, warm and dry Neurologic: PERRL, EOMI, accommodation nl, no face palsy, no dysarthria moves all extremities Psychiatric: A+Ox3, euthymic affect Lymphatic: no cervical lymphadenopathy Results & Data Results & Data ([facility]) Vital Signs (Past 12 Hours) Vital Signs Temp Pulse Resp BP Pulse Ox 11/27/19 13:30 84 22 11/27/19 13:00 89 17 98 11/27/19 12:30 85 20 96 11/27/19 11:56 91 H 23 154/85 H 93 11/27/19 10:41 139 H 25 H 157/98 H 11/27/19 10:20 37.1 C 138 H 20 157/98 H 96 Laboratory Results 11/27/19 11/27/19 11/27/19 Range/Units 11:52 11:28 10:56 WBC (4.8-10.8) K/uL RBC (4.2-5.4) M/uL Hgb (12.0-16.0) g/dL Hct (37-47) % MCV (80-100) fL MCH (25-34) pg MCHC (32-36) g/dL RDW Std Deviation (36.4-46.3) fL RDW Coeff of Serenity (11.5-14.5) % Plt Count (130-400) K/uL MPV (7.4-10.4) fL Immature Gran % (Auto) % Neut % (Auto) % Lymph % (Auto) % [place] % (Auto) % Eos % (Auto) % Baso % (Auto) % Neut # (Auto) (1.4-6.5) K/uL Lymph # (Auto) (1.2-3.4) K/uL [place] # (Auto) (0.11-0.59) K/uL Eos # (Auto) (0-0.5) K/uL Baso # (Auto) (0-0.2) K/uL Immature Gran # (Auto) (0.00-0.02) K/uL PT (9.0-12.0) Seconds INR (0.9-1.1) APTT (21.0-31.0) Seconds PTT Ratio Sodium (136-145) mmol/L Potassium (3.5-5.1) mmol/L Chloride (98-107) mmol/L Carbon Dioxide (21-32) mmol/L Anion Gap (3-11) BUN (7-18) mg/dl Creatinine (0.6-1.2) mg/dl Est Cr Clr Drug Dosing ml/min Est GFR ( Amer) Est GFR (Non-Af Amer) BUN/Creatinine Ratio (10-20) Glucose (70-99) mg/dl Calcium (8.5-10.1) mg/dl Phosphorus (2.5-4.9) mg/dl Magnesium (1.8-2.4) mg/dl Total Bilirubin Pending (0.2-1) mg/dl Direct Bilirubin Pending AST Pending (15-37) U/L ALT Pending (12-78) U/L Alkaline Phosphatase Pending (45-117) U/L Troponin I (0-0.045) ng/ml NT-Pro-B Natriuret Pep (0-1800) pg/ml Total Protein Pending (6.4-8.2) gm/dl Albumin Pending (3.4-5.0) gm/dl Globulin (2.5-4.0) gm/dl Albumin/Globulin Ratio (0.9-2) Urine Color Yellow Urine Appearance Clear (Clear) Urine pH 7.5 (4.5-7.5) Ur Specific [place] 1.021 (1.000-1.030) Urine Protein Negative (Negative) Urine Glucose (UA) Negative (Negative) Urine Ketones Negative (Negative) Urine Blood Negative (Negative) Urine Nitrite Negative (Negative) Urine Bilirubin Negative (Negative) Urine Urobilinogen Negative (Negative) Ur Leukocyte Esterase Negative (Negative) Ethyl Alcohol mg/dL 24.0 H (0-3) mg/dl Blood Type Antibody Screen 11/27/19 11/27/19 11/27/19 Range/Units 10:56 10:56 10:56 WBC (4.8-10.8) K/uL RBC (4.2-5.4) M/uL Hgb (12.0-16.0) g/dL Hct (37-47) % MCV (80-100) fL MCH (25-34) pg MCHC (32-36) g/dL RDW Std Deviation (36.4-46.3) fL RDW Coeff of Serenity (11.5-14.5) % Plt Count (130-400) K/uL MPV (7.4-10.4) fL Immature Gran % (Auto) % Neut % (Auto) % Lymph % (Auto) % [place] % (Auto) % Eos % (Auto) % Baso % (Auto) % Neut # (Auto) (1.4-6.5) K/uL Lymph # (Auto) (1.2-3.4) K/uL [place] # (Auto) (0.11-0.59) K/uL Eos # (Auto) (0-0.5) K/uL Baso # (Auto) (0-0.2) K/uL Immature Gran # (Auto) (0.00-0.02) K/uL PT 11.4 (9.0-12.0) Seconds INR 1.1 (0.9-1.1) APTT 29.4 (21.0-31.0) Seconds PTT Ratio 1.1 Sodium 135 L (136-145) mmol/L Potassium 3.2 L (3.5-5.1) mmol/L Chloride 98 (98-107) mmol/L Carbon Dioxide 25 (21-32) mmol/L Anion Gap 12.0 H (3-11) BUN 7 (7-18) mg/dl Creatinine 0.93 (0.6-1.2) mg/dl Est Cr Clr Drug Dosing 33.7 ml/min Est GFR ( Amer) 64.0 Est GFR (Non-Af Amer) 55.3 BUN/Creatinine Ratio 7.9 L (10-20) Glucose 132 H (70-99) mg/dl Calcium 8.1 L (8.5-10.1) mg/dl Phosphorus 2.8 (2.5-4.9) mg/dl Magnesium 2.0 (1.8-2.4) mg/dl Total Bilirubin 0.7 (0.2-1) mg/dl Direct Bilirubin AST 26 (15-37) U/L ALT 26 (12-78) U/L Alkaline Phosphatase 98 (45-117) U/L Troponin I < 0.015 (0-0.045) ng/ml NT-Pro-B Natriuret Pep 2048 H (0-1800) pg/ml Total Protein 6.7 (6.4-8.2) gm/dl Albumin 3.0 L (3.4-5.0) gm/dl Globulin 3.7 (2.5-4.0) gm/dl Albumin/Globulin Ratio 0.8 L (0.9-2) Urine Color Urine Appearance (Clear) Urine pH (4.5-7.5) Ur Specific [place] (1.000-1.030) Urine Protein (Negative) Urine Glucose (UA) (Negative) Urine Ketones (Negative) Urine Blood (Negative) Urine Nitrite (Negative) Urine Bilirubin (Negative) Urine Urobilinogen (Negative) Ur Leukocyte Esterase (Negative) Ethyl Alcohol mg/dL (0-3) mg/dl Blood Type Antibody Screen 11/27/19 11/27/19 Range/Units 10:56 10:56 WBC 6.23 (4.8-10.8) K/uL RBC 3.85 L (4.2-5.4) M/uL Hgb 13.1 (12.0-16.0) g/dL Hct 38.8 (37-47) % MCV 100.8 H (80-100) fL MCH 34.0 (25-34) pg MCHC 33.8 (32-36) g/dL RDW Std Deviation 53.7 H (36.4-46.3) fL RDW Coeff of Serenity 14.7 H (11.5-14.5) % Plt Count 259 (130-400) K/uL MPV 10.2 (7.4-10.4) fL Immature Gran % (Auto) 0.2 % Neut % (Auto) 70.9 % Lymph % (Auto) 19.6 % [place] % (Auto) 9.1 % Eos % (Auto) 0.0 % Baso % (Auto) 0.2 % Neut # (Auto) 4.42 (1.4-6.5) K/uL Lymph # (Auto) 1.22 (1.2-3.4) K/uL [place] # (Auto) 0.57 (0.11-0.59) K/uL Eos # (Auto) 0.00 (0-0.5) K/uL Baso # (Auto) 0.01 (0-0.2) K/uL Immature Gran # (Auto) 0.01 (0.00-0.02) K/uL PT (9.0-12.0) Seconds INR (0.9-1.1) APTT (21.0-31.0) Seconds PTT Ratio Sodium (136-145) mmol/L Potassium (3.5-5.1) mmol/L Chloride (98-107) mmol/L Carbon Dioxide (21-32) mmol/L Anion Gap (3-11) BUN (7-18) mg/dl Creatinine (0.6-1.2) mg/dl Est Cr Clr Drug Dosing ml/min Est GFR ( Amer) Est GFR (Non-Af Amer) BUN/Creatinine Ratio (10-20) Glucose (70-99) mg/dl Calcium (8.5-10.1) mg/dl Phosphorus (2.5-4.9) mg/dl Magnesium (1.8-2.4) mg/dl Total Bilirubin (0.2-1) mg/dl Direct Bilirubin AST (15-37) U/L ALT (12-78) U/L Alkaline Phosphatase (45-117) U/L Troponin I (0-0.045) ng/ml NT-Pro-B Natriuret Pep (0-1800) pg/ml Total Protein (6.4-8.2) gm/dl Albumin (3.4-5.0) gm/dl Globulin (2.5-4.0) gm/dl Albumin/Globulin Ratio (0.9-2) Urine Color Urine Appearance (Clear) Urine pH (4.5-7.5) Ur Specific [place] (1.000-1.030) Urine Protein (Negative) Urine Glucose (UA) (Negative) Urine Ketones (Negative) Urine Blood (Negative) Urine Nitrite (Negative) Urine Bilirubin (Negative) Urine Urobilinogen (Negative) Ur Leukocyte Esterase (Negative) Ethyl Alcohol mg/dL (0-3) mg/dl Blood Type O Positive Antibody Screen NEGATIVE Diagnostic Findings Head CT November 27, 2019 IMPRESSION: There is no hemorrhage, mass effect, or evidence of acute territorial ischemia by CT criteria. CTA head and neck, November 27, 2019 IMPRESSION: 1. There is no hemorrhage, mass effect, or evidence of acute territorial ischemia by CT criteria noting angiographic phase technique. 2. Unremarkable CT and radiograph of the neck. 3. Unremarkable CT angiogram of the brain. 4. There is a large right mastoid effusion and fluid within the right middle ear. 5. Post craniectomy change is noted in the right occipital bone. Code Status & VTE Plan VTE Prophylaxis Plan VTE Prophylaxis will be ordered: Yes
[2019-11-27 14:08] LABS: Bilirubin Direct 0.2 mg/dl (0-0.2); Bilirubin,Total 0.7 mg/dl (0.2-1); Total Protein 6.7 gm/dl (6.4-8.2)
--- NOTE | 2019-11-27 14:28 | XRay Report ---
SINGLE VIEW CHEST CLINICAL HISTORY: Dyspnea. Syncope. FINDINGS: An AP, portable, upright chest radiograph is compared to study dated 12/12/2008. Correlation is made with chest CT dated 02/12/2013. The examination is degraded by portable technique and patient rotation. The heart is enlarged noting atherosclerotic calcification of the thoracic aorta. There is pulmonary vascular congestion. Changes of chronic interstitial lung disease appears progressive as c ompared to 2008. Small pleural effusions are suspected. Bibasilar opacities are noted. No pneumothora x is seen. The skeletal structures are osteopenic. The bony thorax is grossly intact. IMPRESSION: 1. Cardiomegaly with mild pulmonary vascular congestion. 2. Changes of chronic interstitial lung disease appears progressive as compared to 2008. 3. Suspect small pleural effusions. 4. Bibasilar airspace opacities likely represent atelectasis. Correlate clinically for evidence of a superimposed infectious/inflammatory pneumonitis. ACT 112: Negative or not required by law. Electronically signed by: Jose Armando Toth M.D. 11/27/2019 2:26 PM
[2019-11-27] MEDS ORDERED: POTASSIUM CHLORIDE 20 MEQ TABCR PO STA (14:36)
[2019-11-27 14:41] LABS: Folate (Folic Acid) > 24.00 ng/ml (>5.38); Vitamin B12 1914 pg/ml (211-911)
[2019-11-27] MEDS: FELODIPINE 2.5 MG TABCR PO SCH (18:11)
[2019-11-27] MEDS: METOPROLOL SUCC 50MG EXT REL TAB PO SCH (18:12)
[2019-11-27] MEDS: MAGNESIUM OXIDE 400 MG TAB PO SCH (18:12)
[2019-11-27] MEDS: RIVAROXABAN 15 MG TAB PO SCH (18:12)
[2019-11-27] MEDS: CYANOCOBALAMIN 500 MCG TABLET (VITAMIN B-12) PO SCH (18:13)
[2019-11-27] MEDS: POTASSIUM CHLORIDE 20 MEQ TABCR PO SCH (18:13)
[2019-11-27] MEDS: THIAMINE HCL 100 MG in SYRINGE 9 ML IV SCH (18:30)
[2019-11-27] MEDS: FOLIC ACID 1 MG in SYRINGE 9.8 ML IV SCH (18:30)
[2019-11-28 07:37] LABS: Hematocrit (blood only) 37.2 % (37-47); Hemoglobin 12.5 g/dL (12.0-16.0); Mean Corpuscular Hemoglobin 33.8 pg (25-34); Mean Corpuscular Hgb Conc 33.6 g/dL (32-36); Mean Corpuscular Volume 100.5 fL (80-100); Mean Platelet Volume 10.1 fL (7.4-10.4); Platelet Count 240 K/uL (130-400); RDW Coefficient of Variation 15.3 % (11.5-14.5); White Blood Count 7.59 K/uL (4.8-10.8)
[2019-11-28] MEDS: POTASSIUM CHLORIDE 20 MEQ TABCR PO SCH (08:17)
[2019-11-28] MEDS: MAGNESIUM OXIDE 400 MG TAB PO SCH (08:17)
[2019-11-28] MEDS: METOPROLOL SUCC 50MG EXT REL TAB PO SCH (08:17)
[2019-11-28] MEDS: CEROVITE ADV FORMULA TAB PO SCH (08:17)
[2019-11-28] MEDS: FELODIPINE 2.5 MG TABCR PO SCH (08:17)
[2019-11-28] MEDS: CYANOCOBALAMIN 500 MCG TABLET (VITAMIN B-12) PO SCH (08:17)
[2019-11-28 08:18] LABS: Albumin Globulin Ratio 0.8 (0.9-2); Albumin Level 2.8 gm/dl (3.4-5.0); BUN Creatinine Ratio 10.1 (10-20); Calcium 8.4 mg/dl (8.5-10.1); Creatinine Clr Calc Pharmacy 33.3 ml/min; Est GFR (African American) 63.2; Est GFR (Non-African American) 54.5; Globulin 3.4 gm/dl (2.5-4.0); Magnesium 2.5 mg/dl (1.8-2.4); Phosphorus 2.8 mg/dl (2.5-4.9); Potassium 4.2 mmol/L (3.5-5.1); Total Protein 6.2 gm/dl (6.4-8.2)
[2019-11-28] MEDS: FOLIC ACID 1 MG in SYRINGE 9.8 ML IV SCH (08:19)
[2019-11-28] MEDS: THIAMINE HCL 100 MG in SYRINGE 9 ML IV SCH (08:19)
--- NOTE | 2019-11-28 11:00 | Magnetic Resonance Report ---
MRI OF THE BRAIN WITHOUT CONTRAST CLINICAL HISTORY: altered mental status COMPARISON STUDY: Noncontrast head CT dated 11/27/2019 FINDINGS: Sagittal T1, axial diffusion, proton density and T2 weighted axial, coronal FLAIR, and axial T1-weigh joaquin images were acquired. No intra or extra-axial mass lesions are visualized Axial diffusion-weighted images reveal no evidence of acute or subacute infarction. There is no evidence of ventricular dilatation. Proton density T2-weighted and FLAIR images reveal minimal foci of increased T2 signal within the whi te matter, likely on a small vessel basis. There are no abnormal flow voids. There are foci of increased T2 signal within the right mastoid, likely inflammatory. There is a 22 mm sebaceous cyst within the left frontal scalp IMPRESSION: 1. No acute intracranial findings. 2. No evidence of acute or subacute infarction 3. No evidence of intracranial mass 4. Right mastoid effusion 5. 20 mm sebaceous cyst within the left frontal scalp ACT 112: Negative or not required by law. Electronically signed by: Kris Hernandez M.D. 11/28/2019 10:59 AM
[2019-11-28] MEDS ORDERED: PIPERACILLIN/TAZOBACTAM 3.375 GM in DEXTROSE 5% 100 ML IV SCH (12:30)
[2019-11-28] MEDS ORDERED: PIPERACILLIN/TAZOBACTAM 3.375 GM in DEXTROSE 5% 100 ML IV STA (12:42)
[2019-11-28] MEDS ORDERED: PIPERACILL/TAZOBAC CONSULT ACTIVE PRN (12:43)
--- NOTE | 2019-11-28 12:50 | Hospitalist Progress Note ---
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 , Which has been significant stress factor for herself, Has been neglecting self-care Patient had prior history of depression and anxiety Long back has not been following with any psychiatrist recently Requests inpatient psychiatric evaluation Stable to be transferred to medical floor (2) Depression with anxiety: Daughter reports patient has anxiety disorder with episodes of panic attacks, Gets very stressed as she is the primary caregiver for her elderly Has not been followed with any psychiatrist for a long time Psychiatric evaluation requested (3) Hypokalemia: Possible secondary to poor appetite, dehydration, On Lasix Calcium replaced, continue to monitor (4) Chronic atrial fibrillation: -Rate rhythm control on metoprolol anticoagulation with Xarelto -Patient follows with [facility] cardiology, Juan Snowden/Dr. 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 fib Admission and Anticipated Discharge Date Admission Date: November 27, 2019 Subjective Patient is awake and alert, sitting up in chair, daughter present at bedside, Very hard of hearing Denies of any headache no blurred vision, No confusion noted Review of Systems Review of Systems: All systems reviewed & are unremarkable except as noted in HPI & below Physical Exam Constitutional: WD/WN, vitals as above no acute distress Hard of hearing Eyes: PERRL, conjunctivae normal, anicteric sclerae ENMT: external ear and nose normal, oropharynx normal Neck: trachea midline, no thyromegaly Respiratory: normal respiratory effort, lungs clear to auscultation Cardiovascular: RRR, no murmur, no edema Gastrointestinal (Abdomen): normal bowel sounds, soft, nontender, no hepatosplenomegaly Musculoskeletal: no cyanosis or clubbing, extremities motor strength 5/5 Skin: no rashes, warm and dry Neurologic: PERRL, EOMI, accommodation nl, no face palsy, no dysarthria Hard of hearing Psychiatric: A+Ox3, euthymic affect Results & Data Results & Data ([facility]) Vital Signs (Past 12 Hours) Vital Signs Temp Pulse Pulse Resp BP BP Pulse Ox 11/28/19 12:04 36.3 C L 59 L 18 106/51 L 96 11/28/19 07:15 67 11/28/19 07:02 36.5 C 70 18 163/70 H 95 11/28/19 03:49 36.4 C L 57 L 16 125/76 96 (1) Mastoid disorder Laterality: right Qualified Code(s): H74.91 - Unspecified disorder of right middle ear and mastoid
[2019-11-28] MEDS: CIPRO 0.3%/DEXAMETHASONE 0.1% OTIC SUSP 7.5ML OT SCH ×2 (13:47→20:37)
[2019-11-28] MEDS: FUROSEMIDE 40 MG TAB PO SCH (17:50)
[2019-11-28] MEDS: RIVAROXABAN 15 MG TAB PO SCH (17:51)
[2019-11-28] MEDS: LORazepam 0.5 MG TAB PO PRN (22:08)
[2019-11-29] MEDS: LORazepam 0.5 MG TAB PO PRN (04:33)
[2019-11-29] MEDS: CIPRO 0.3%/DEXAMETHASONE 0.1% OTIC SUSP 7.5ML OT SCH ×2 (08:57→21:14)
[2019-11-29] MEDS: FUROSEMIDE 40 MG TAB PO SCH (08:59)
[2019-11-29] MEDS: CYANOCOBALAMIN 500 MCG TABLET (VITAMIN B-12) PO SCH (08:59)
[2019-11-29] MEDS: CEROVITE ADV FORMULA TAB PO SCH (08:59)
[2019-11-29] MEDS: METOPROLOL SUCC 50MG EXT REL TAB PO SCH (08:59)
[2019-11-29] MEDS: FELODIPINE 2.5 MG TABCR PO SCH (08:59)
[2019-11-29] MEDS: POTASSIUM CHLORIDE 20 MEQ TABCR PO SCH (08:59)
[2019-11-29] MEDS: MAGNESIUM OXIDE 400 MG TAB PO SCH (09:02)
[2019-11-29] MEDS ORDERED: LORazepam 0.5 MG TAB PO PRN (11:09)
--- NOTE | 2019-11-29 12:09 | Psychiatric Consultation ---
Date of Consultation November 29, 2019 Impression / Recommendations Impression Dr. Magalis Ni was directly involved in review and discussion of the patient's case and participated in medical decision making regarding treatment recommendations. RECOMMENDATIONS: 11/28 - Consult received to assess patient for depressive symptoms and anxiety. Pt has a reported history of depression, for which she has a remote history of antidepressant medication trials. Conversation occurred with patient's daughter, Maria Luz, present and contributing helpful information. - Primary recommendation is that the situations contributing to patient's stress be addressed. Both patient and her daughter admit that being the primary caregiver for the patient's has become overwhelming and is contributing to the patient directing less attention to her own ADLs and self-care. Case management has been involved, with initial plans to refer for home health and Meals on Wheels. Recommend additional assistance within the home as indicated. - Based on history of depression, and a noticeable change in sleep, energy, appetite, mood, and anxiety over the past 6 months, the patient and her daughter are willing to consider medications to address these concerns. We discussed a trial of mirtazapine 7.5mg to target depressive symptoms and anxiety - with likelihood of also providing benefit of sedation and appetite stimulation. Risks, benefits, and potential side effects of the medication were reviewed with the patient and her daughter, who both verbalized understanding and are agreeable with starting this new medication. Pt was encouraged to use caution when ambulating from her bed to the bathroom during the night, as gait stability may be altered if patient is experiencing increased sedation. - Pt did receive 0.5mg of lorazepam x2 last evening, with reports today that she was more confused than usual upon waking from sleep. Given patient's advanced age, concern for sedation/confusion, increased risk of falls, and desire to limit use of medications with abuse potential in general - would advice against routine use of lorazepam in the future. Would suggest utilization of melatonin if needed for sleep in the future, as this may assist to stabilize and reinforce appropriate sleep rhythms. Would advise against utilization of additional sedating medications until we are able to see how patient tolerates the addition of mirtazapine. - Family is declining referral for formal psychiatric medication management at this time. As [facility] is [facility] - PCP could refer to Dr. Florencia Little if these services are desired after the patient is discharged. Will fax copy of this consultation to patient's PCP for coordination of care. - Will continue to follow patient's progress. Please reach out to our service with any additional questions or updates. Psych History Identifying Data 89-year-old female admitted medically on 11/27/2019 after presenting to the ED for AMS/weakness, with reported syncopal episode prior to admission. Psychiatric consultation was requested to evaluate patient for "depression/anxiety disorder." Chief Complaint "Well, I felt better yesterday. I was calmer. I woke up a little discombobulated." History of Present Illness Myrtle Rivera is an 89-year-old female admitted medically on 11/27/2019 after presenting to the ED for AMS/weakness, with reported syncopal episode prior to arrival. Pt does have a remote history of treatment for depression, but denied active mental health treatment at this time. Pt has a PMH of CKD, bilateral carotid artery stenosis, chronic atrial fibrillation, HTN, and HLD. It is reported that the patient has been the primary caregiver for her , who has been requiring increased care over the last 6 months, which may be contributing to patient's anxiety. Psychiatric consultation was requested to evaluate patient for "depression/anxiety disorder." Initially, conversation with conducted only between this provider and the patient. Pt states that she is hungry and awaiting lunch, but pleasant and agreeable with speaking with this provider. Pt states "well, I felt better yesterday. I was calmer. I woke up a little discombobulated." Pt states that she received 2 doses of lorazepam last evening to assist with sleep, and was more confused than she expected to be when she awoke this morning. Pt does admit that overall she is feeling better, but continues to be rather anxious about the idea of returning home. Patient's daughter, Maria Luz, later entered the room with patient specifically requesting that she participate in conversation. Both the patient and her daughter indicate that the patient is the primary caregiver for the patient's , which has become an increasing challenge for the patient over the past 6 months. Pt's daughter states that she has been working with case management to set-up additional assistance for the patient and her in the home, including home health services and Meals on Wheels. The patient does endorse poor sleep, decreased appetite, reduced energy, and increased anxiety and low mood. Pt does admit that some of this may be related to the COVID-19 pandemic, as she is not able to spend as much time out of the home with her friends as she had 3 months ago. While the patient and her daughter recognize that a considerable amount of the patient's stress may be related to her current living situation and being her 's primary caregiver, they also report that the patient has a history of depression for which she had previously taken antidepressant medications. Unfortunately, the pair is unable to recall previous medication trials - but they do endorse a desire to trial an antidepressant/antianxiety medication that may target these continued mood/anxiety symptoms. We discussed numerous options, and ultimately decided on initiation of mirtazapine with option to introduce melatonin if difficulty sleeping should continue once patient is adjusted to the mirtazapine. Risks, benefits, and potential side effects were reviewed. Pt and daughter verbalized understanding and are agreeable with treatment plan. Pt does endorse occasional hopelessness and thoughts to "esca pe." She denies active SI, or intent/plan/means to harm herself. She is future oriented and able to verbalize aspects of an appropriate safety plan. No indicate for inpatient psychiatric treatment at this time. Past Psychiatric History Current Psychiatric Diagnosis: History of treatment for depression Outpatient Services: None presently Previous Psych Admissions: None Past Medication Trials: Pt is unable to recall previous psychotropic medications - admits to history of treatment for depression. Allergies Allergy/AdvReac Type Severity Reaction Status Date / Time No Known Allergies Allergy Unknown NONE Verified 11/27/19 11:21 Home Medications Home Medications Medication Instructions Recorded Confirmed Type felodipine 2.5 mg PO DAILY 11/27/19 11/27/19 History furosemide 40 mg PO [id number] 11/27/19 11/27/19 History magnesium oxide 400 mg PO DAILY 11/27/19 11/27/19 History metoprolol succinate 150 mg PO DAILY 11/27/19 11/27/19 History olikyaww-vnx-VH-lycopen-lutein 1 tab PO DAILY 11/27/19 11/27/19 History [Centrum Silver] potassium chloride 20 meq PO DAILY 11/27/19 11/27/19 History rivaroxaban [Xarelto] 15 mg PO QDD 11/27/19 11/27/19 History Family History Depression reported for patient's brother. Patient's daughter has bipolar disorder. Patient's father struggled with alcoholism. Substance Abuse History Pt admits to consuming at least 1 glass of wine each evening. She occasionally drinks as many as 2-3 glasses when she is socializing with friends. Pt is a non-smoker. No reports of history of illicit substance abuse. 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) Marital Status: Number Of Children: 1 adult son, 1 adult daughter Beliefs That Will Affect Care: Caodaism History of Legal Problems: Denied Psychological Trauma History Comment: Denied Patient History Medical History Bilateral carotid artery stenosis Chronic atrial fibrillation Chronic interstitial lung disease CKD (chronic kidney disease), stage III Diastolic dysfunction Dyslipidemia History of perforation of tympanic membrane Hypertension Mastoid disorder Senile osteoporosis Subclinical hypothyroidism Trigeminal neuralgia Surgical History History of uterine suspension procedure Status post craniectomy Family History Father Stroke at age 69 Mother , at age 85 Rheumatoid arthritis Social History Preferred Language: Kinyarwanda Communication Ability: Effective 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 Beliefs That Will Affect Care: Caodaism marital status: Current Living Situation: Spouse Other Information That Helps Us Care for You: No Feels Safe at Home: Yes Safety Concerns: Feels Safe At This Time Smoking Status: Never smoker Hx Alcohol Use: Yes Alcohol type: wine Hx Substance Use: No Physical Exam Psychiatric: Orientation: alert, oriented to person, oriented to place, oriented to time (aware it is November 2019, did believe date to be the ) and cooperative (and pleasant) Apperance: appropriately dressed, appropriately groomed and appeared stated age Thin appearing female, seated in bedside chair in no acute distress. Pt is appropriately dressed for setting, wearing what appears to be a robe/nightgown from home. She wears corrective lenses and her short, white hair appears clean and neatly styled. Level of hygiene appears adequate. Eye Contact: good eye contact Motor Behavior: no abnormal motor movements (observed while sitting in bedside chair) Speech: normal rate/rhythm/volume of speech (soft tone) Affect: + depressed affect, + anxious affect (pt does appear overwhelmed during our discussion) and + tearful affect Mood: + depressed mood and + anxious mood Thought Process: goal directed thought process, clear/coherent thought process and thought association intact Thought Content: reality based without delusions; no hopelessness and no worthlessness Suicidal Thoughts: denies suicidal thoughts and denies suicidal intent Does endorse thoughts to "escape" which occur weekly, but denied active SI, plan, or intent Homicidal Thoughts: denies homicidal thoughts Hallucinations: no auditory hallucinations and no visual hallucinations Cognition: attention grossly intact and language grossly intact Estimated Intelligence: consistent with education level Insight: + fair insight Judgement: + fair judgement Vital Signs (Past 24 Hours): Last Vital Signs Temp 36.7 C 11/29/19 07:11 Pulse 61 11/29/19 07:11 Resp 16 11/29/19 07:11 BP 154/71 H 11/29/19 07:11 Pulse Ox 97 11/29/19 07:11 Review of Systems Constitutional: reports occasional difficulty falling asleep, reduced appetite, anxiety Cardiovascular: denied Respiratory: denied Gastrointestinal: denied Neurological: denied Psychiatric: denies symptoms other than stated above Total of at least 10 systems reviewed, pertinent positives as above and in HPI. Results & Data (PSY) Medications Administered Ciprofloxacin/Dexamethasone (Ciprodex Otic) 4 drops OT BID ISABEL Stop: 12/28/19 12:59 Last Admin: 11/29/19 08:57 Dose: 4 drops Documented by: [id number] Admin: 11/28/19 20:37 Dose: 4 drops Documented by: [id number] Admin: 11/28/19 13:47 Dose: 4 drops Documented by: [id number] Cyanocobalamin (Vitamin B-12) 1,000 mcg PO QAM ISABEL Stop: 12/27/19 16:59 Last Admin: 11/29/19 08:59 Dose: 1,000 mcg Documented by: [id number] Admin: 11/28/19 08:17 Dose: 1,000 mcg Documented by: [id number] Admin: 11/27/19 18:13 Dose: 1,000 mcg Documented by: [id number] Felodipine (Plendil) 2.5 mg PO DAILY ISABEL Stop: 12/27/19 16:59 Last Admin: 11/29/19 08:59 Dose: 2.5 mg Documented by: [id number] Admin: 11/28/19 08:17 Dose: 2.5 mg Documented by: [id number] Admin: 11/27/19 18:11 Dose: 2.5 mg Documented by: [id number] Furosemide (Lasix) 40 mg PO [id number] ISABEL Stop: 12/28/19 17:29 Last Admin: 11/29/19 08:59 Dose: 40 mg Documented by: [id number] Admin: 11/28/19 17:50 Dose: Not Given Documented by: [id number] Magnesium Oxide (Mag-Ox) 400 mg PO DAILY ISABEL Stop: 12/27/19 16:59 Last Admin: 11/29/19 09:02 Dose: 400 mg Documented by: [id number] Admin: 11/28/19 08:17 Dose: 400 mg Documented by: [id number] Admin: 11/27/19 18:12 Dose: 400 mg Documented by: [id number] Metoprolol Succinate (Toprol Xl) 125 mg PO DAILY ISABEL Stop: 12/27/19 16:59 Last Admin: 11/29/19 08:59 Dose: 125 mg Documented by: [id number] Admin: 11/28/19 08:17 Dose: 125 mg Documented by: [id number] Admin: 11/27/19 18:12 Dose: 125 mg Documented by: [id number] Multivitamins/Minerals (Multivitamin W/ Minerals Tab) 1 tab PO DAILY ISABEL Stop: 12/28/19 08:59 Last Admin: 11/29/19 08:59 Dose: 1 tab Documented by: [id number] Admin: 11/28/19 08:17 Dose: 1 tab Documented by: [id number] Potassium Chloride (Klor-Con M20) 20 meq PO DAILY ISABEL Stop: 12/27/19 16:59 Last Admin: 11/29/19 08:59 Dose: 20 meq Documented by: [id number] Admin: 11/28/19 08:17 Dose: 20 meq Documented by: [id number] Admin: 11/27/19 18:13 Dose: 20 meq Documented by: [id number] Rivaroxaban (Xarelto) 15 mg PO QDD ISABEL Stop: 12/27/19 16:59 Last Admin: 11/28/19 17:51 Dose: 15 mg Documented by: [id number] Admin: 11/27/19 18:12 Dose: 15 mg Documented by: [id number] Coding Level of Care Code 85098 [facility] Intl Hosp Care Lvl 3
[2019-11-29] MEDS ORDERED: MELATONIN 3 MG TAB PO PRN (15:27)
--- NOTE | 2019-11-29 16:43 | Hospitalist Progress Note ---
Date of Service November 29, 2019 Assessment & Plan (1) Depression with anxiety: Daughter reports patient has anxiety disorder with episodes of panic attacks, Gets very stressed as she is the primary caregiver for her elderly Has not been followed with any psychiatrist for a long time Psychiatric evaluation requested-appreciate input Patient will be started on low-dose Remeron Avoid benzodiazepine Ativan DC'd (2) Altered mental status: Reports of having a good day yesterday, was alert, oriented Feeling groggy and sedated as received treatment last night As a diet is been discontinued Started on Remeron as per psychiatric evaluation Presented with episode of confusion, mental status improved to baseline Detailed neuro imaging shows no evidence of stroke Daughter present at bedside, worried that patient may be experiencing anxiety/panic attack and underlying depression Patient is the primary caregiver for her elderly , Which has been significant stress factor for herself, Has been neglecting self-care Patient had prior history of depression and anxiety Long back has not been following with any psychiatrist recently Psych evaluation appreciated (3) Hypokalemia: Possible secondary to poor appetite, dehydration, On Lasix Calcium replaced, continue to monitor (4) Chronic atrial fibrillation: -Rate rhythm control on metoprolol anticoagulation with Xarelto -Patient follows with [facility] cardiology, Juan Snowden/Dr. 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 fib Admission and Anticipated Discharge Date Admission Date: November 27, 2019 Subjective Patient reports of having a good night sleep, woke up groggy Received benzodiazepine 10 PM last night, and a repeat dose at 4:30 AM No confusion, no disorientation, No headache blurred vision, no fever chills Review of Systems Review of Systems: All systems reviewed & are unremarkable except as noted in HPI & below Physical Exam Constitutional: WD/WN, vitals as above no acute distress Eyes: PERRL, conjunctivae normal, anicteric sclerae ENMT: Ears: + TM abnormality (Right eardrum, perforation noted, with residual air drum lining whitish exudate) Neck: trachea midline, no thyromegaly Respiratory: normal respiratory effort, lungs clear to auscultation Cardiovascular: RRR, no murmur, no edema Gastrointestinal (Abdomen): normal bowel sounds, soft, nontender, no hepatosplenomegaly Musculoskeletal: no cyanosis or clubbing, extremities motor strength 5/5 Skin: no rashes, warm and dry Neurologic: PERRL, EOMI, accommodation nl, no face palsy, no dysarthria Psychiatric: A+Ox3, euthymic affect Results & Data Results & Data ([facility]) Vital Signs (Past 12 Hours) Vital Signs Temp Pulse Resp BP BP Pulse Ox 11/29/19 15:09 36.7 C 61 18 124/72 97 11/29/19 07:11 36.7 C 61 16 154/71 H 97 (1) Mastoid disorder Laterality: right Qualified Code(s): H74.91 - Unspecified disorder of right middle ear and mastoid
[2019-11-29] MEDS: RIVAROXABAN 15 MG TAB PO SCH (18:35)
[2019-11-29] MEDS: MIRTAZAPINE TAB 15 MG TAB PO SCH (21:13)
[2019-11-30] MEDS: CIPRO 0.3%/DEXAMETHASONE 0.1% OTIC SUSP 7.5ML OT SCH ×2 (08:39→20:03)
[2019-11-30] MEDS: POTASSIUM CHLORIDE 20 MEQ TABCR PO SCH (08:42)
[2019-11-30] MEDS: FELODIPINE 2.5 MG TABCR PO SCH (08:42)
[2019-11-30] MEDS: CEROVITE ADV FORMULA TAB PO SCH (08:42)
[2019-11-30] MEDS: FUROSEMIDE 40 MG TAB PO SCH (08:42)
[2019-11-30] MEDS: CYANOCOBALAMIN 500 MCG TABLET (VITAMIN B-12) PO SCH (08:42)
[2019-11-30] MEDS: METOPROLOL SUCC 50MG EXT REL TAB PO SCH (08:42)
[2019-11-30] MEDS: MAGNESIUM OXIDE 400 MG TAB PO SCH (08:42)
[2019-11-30] MEDS: RIVAROXABAN 15 MG TAB PO SCH (15:56)
--- NOTE | 2019-11-30 18:32 | Hospitalist Progress Note ---
Date of Service November 30, 2019 Assessment & Plan (1) Depression with anxiety: Daughter reports patient has anxiety disorder with episodes of panic attacks, Gets very stressed as she is the primary caregiver for her elderly Has not been followed with any psychiatrist for a long time Psychiatric evaluation requested-appreciate input Patient will be started on low-dose Remeron Avoid benzodiazepine Ativan DC'd will need out pt Psychiatry follow up , should establish care with [facility] Psy[facility]ry Dr Meagan Momin [facility] (2) Altered mental status: symptoms has resolved alert and awake , no confusion or agitation very hard of hearing Started on Remeron as per psychiatric for anxietry disorder Presented with episode of confusion, mental status improved to baseline Detailed neuro imaging shows no evidence of stroke Daughter present at bedside, worried that patient may be experiencing anxiety/panic attack and underlying depression Patient is the primary caregiver for her elderly , Which has been significant stress factor for herself, Has been neglecting self-care Patient had prior history of depression and anxiety Long back has not been following with any psychiatrist recently Psych evaluation appreciated (3) Hypokalemia: Possible secondary to poor appetite, dehydration, On Lasix Calcium replaced, continue to monitor (4) Chronic atrial fibrillation: -Rate rhythm control on metoprolol anticoagulation with Xarelto -Patient follows with [facility] cardiology, Juan Snowden/Dr. 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 fib disposition ; plan of care discussed with pt and daughter at bedside agreeable plan to discharge home tomorrow Admission and Anticipated Discharge Date Admission Date: November 27, 2019 Subjective feeling much better today recived Remeron last night , able to sleep well daughter worried that pt stiil have balance issues while going to bathroom and coming back cont PT/OT plan is to DC home [place] Physical Exam Constitutional: WD/WN, vitals as above no acute distress Eyes: PERRL, conjunctivae normal, anicteric sclerae ENMT: external ear and nose normal, oropharynx normal Ears: + TM abnormality (Right eardrum, perforation noted, with residual air drum lining whitish exudate) Neck: trachea midline, no thyromegaly Respiratory: normal respiratory effort, lungs clear to auscultation Cardiovascular: RRR, no murmur, no edema Gastrointestinal (Abdomen): normal bowel sounds, soft, nontender, no hepatosplenomegaly Musculoskeletal: no cyanosis or clubbing, extremities motor strength 5/5 Skin: no rashes, warm and dry Neurologic: PERRL, EOMI, accommodation nl, no face palsy, no dysarthria Psychiatric: A+Ox3, euthymic affect Results & Data Results & Data ([facility]) Vital Signs (Past 12 Hours) Vital Signs Temp Pulse Pulse Resp BP Pulse Ox 11/30/19 15:05 36.6 C 60 60 16 120/69 96 11/30/19 07:39 37.4 C 70 18 99/61 L 97 (1) Mastoid disorder Laterality: right Qualified Code(s): H74.91 - Unspecified disorder of right middle ear and mastoid
[2019-11-30] MEDS: MIRTAZAPINE TAB 15 MG TAB PO SCH (20:04)
[2019-12-01] MEDS: CIPRO 0.3%/DEXAMETHASONE 0.1% OTIC SUSP 7.5ML OT SCH ×2 (08:40→22:20)
[2019-12-01] MEDS: CEROVITE ADV FORMULA TAB PO SCH (08:40)
[2019-12-01] MEDS: FELODIPINE 2.5 MG TABCR PO SCH (08:40)
[2019-12-01] MEDS: POTASSIUM CHLORIDE 20 MEQ TABCR PO SCH (08:40)
[2019-12-01] MEDS: CYANOCOBALAMIN 500 MCG TABLET (VITAMIN B-12) PO SCH (08:40)
[2019-12-01] MEDS: METOPROLOL SUCC 50MG EXT REL TAB PO SCH (08:40)
[2019-12-01] MEDS: MAGNESIUM OXIDE 400 MG TAB PO SCH (08:40)
--- NOTE | 2019-12-01 12:21 | Hospitalist Progress Note ---
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 No evidence of acute or subacute infarction. No evidence of intracranial mass No focal neuro deficit Resolved (3) Hypokalemia: Possible secondary to poor appetite, dehydration, Stable (4) Chronic atrial fibrillation: Rate rhythm control on metoprolol Continue Xarelto Patient follows with [facility] [address] cardiology, Juan Snowden/Dr. 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 Walking in the hallway with her daughter. Pt said that she feels ok Daughter said that pt was upset this morning when she found out that she will be discharge home today Daughter said that she would rather like pt to stay for a few days to rest and get stronger before discharging home She said that pt provides care with her at home Daughter would like to speak to case management to look on short term placement option Denies any chest pain, palpitation, dizziness and SOB Physical Exam Physical Exam: General- No acute distress Head- atraumatic Eyes- PERRL, EOMI, ENT- decrease hearing function Neck- supple, no JVD Lungs- clear to auscultation Heart- regular rhythm; no murmur Abdomen- normal bowel sounds, soft, nontender Extremities- no calf tenderness Neuro- alert, oriented x 3; PERRL, EOMI; no facial palsy; no dysarthria Skin- warm & dry Results & Data Results & Data ([facility]) Vital Signs (Past 12 Hours) Vital Signs Temp Pulse Resp BP Pulse Ox 12/01/19 07:05 37 C 79 18 151/72 H 96 (1) Mastoid disorder Laterality: right Qualified Code(s): H74.91 - Unspecified disorder of right middle ear and mastoid
[2019-12-01] MEDS: RIVAROXABAN 15 MG TAB PO SCH (15:55)
[2019-12-01] MEDS: MIRTAZAPINE TAB 15 MG TAB PO SCH (22:20)
[2019-12-02] MEDS: METOPROLOL SUCC 50MG EXT REL TAB PO SCH (09:22)
[2019-12-02] MEDS: CYANOCOBALAMIN 500 MCG TABLET (VITAMIN B-12) PO SCH (09:22)
[2019-12-02] MEDS: FUROSEMIDE 40 MG TAB PO SCH (09:25)
[2019-12-02] MEDS: MAGNESIUM OXIDE 400 MG TAB PO SCH (09:25)
[2019-12-02] MEDS: CEROVITE ADV FORMULA TAB PO SCH (09:25)
[2019-12-02] MEDS: CIPRO 0.3%/DEXAMETHASONE 0.1% OTIC SUSP 7.5ML OT SCH (09:25)
[2019-12-02] MEDS: FELODIPINE 2.5 MG TABCR PO SCH (09:25)
[2019-12-02] MEDS: POTASSIUM CHLORIDE 20 MEQ TABCR PO SCH (09:26)
--- NOTE | 2019-12-02 12:21 | Hospitalist Progress Note ---
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 No evidence of acute or subacute infarction. No evidence of intracranial mass No focal neuro deficit Resolved (3) Hypokalemia: Possible secondary to poor appetite, dehydration, Stable (4) Chronic atrial fibrillation: Rate rhythm control on metoprolol Continue Xarelto Patient follows with [facility] cardiology, Juan Snowden/Dr. 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 on CT head Patient had perforation of right eardrum a number of years back Ordered for Ciprodex drops on right ear complete 7 days tx Will need outpatient ENT evaluation Daughter updated (10) Diastolic dysfunction: No sign of volume overload Continue Lasix 5 times a week Left arm bruises Dark scab at the site of the IV access Denies any pain No drainage or erythema Will do tripple ointment BID for 5 days Advised pt/daughter to monitor the Left arm and if develops any redness and drainage to seek medical attention CODE STATUS DNR/DNI, DVT ppx: on Xarelto Disposition Stable to discharge home today Admission and Anticipated Discharge Date Admission Date: November 27, 2019 Subjective Pt was seen and examined Sitting in chair with no distress with daughter by her side Pt said that she feels much better She is more relaxed and calm today Nurse said that one IV team removed the IV side in her left arm, there was some pus that came out Denies any fever, chest pain, palpitation and hallucination Physical Exam Physical Exam: General- No acute distress Head- atraumatic Eyes- PERRL, EOMI, ENT- decrease hearing function Neck- supple, no JVD Lungs- clear to auscultation Heart- regular rhythm; no murmur Abdomen- normal bowel sounds, soft, nontender Extremities- no calf tenderness, dark scab at left arm from the IV side Neuro- alert, oriented x 3; PERRL, EOMI; no facial palsy; no dysarthria Skin- warm & dry Results & Data Results & Data ([facility]) Vital Signs (Past 12 Hours) Vital Signs Temp Pulse Resp BP Pulse Ox 12/02/19 07:03 36.8 C 64 18 155/66 H 93 (1) Mastoid disorder Laterality: right Qualified Code(s): H74.91 - Unspecified disorder of right middle ear and mastoid
--- NOTE | 2019-12-04 09:41 | Discharge Summary ---
Date of Service December 02, 2019 Admission HPI Per Admitting Provider Mrs. Rivera is a 89-year-old female, with history of hypertension, dyslipidemia, subclinical hypothyroidism, CKD stage III, bilateral carotid stenosis, chronic A. 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 Patient lives upstairs in her house, and her lives downstairs. 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 She checks his blood sugar levels and email these values to her daughter Maria Luz, who lives about 1 [place] half miles away. She does this daily however this morning she did not write to her daughter and therefore daughter became concerned. She came to her house and checked on her. She was let into the house by her father, and he reported that Mrs. Rivera never came downstairs. Daughter Maria Luz came upstairs, and her mom was wobbly walking, and told her that she "did not know what was happening around her and that something was wrong." Maria Luz reports that patient had couple glasses of wine last evening, and thought that maybe her mother was little dehydrated, and gave her 2 glasses of water. Patient did not feel herself and so they called the ambulance. When an ambulance came, patient refused to go and was combative, then she laid down in position and was saying that she "does not care", and was not responding to EMS staff. However Maria Luz reports that when she was tickling her feet, patient responded. Reportedly patient was also combative in the emergency room, and received 0.5 mg of IV Ativan, then she calmed down and was pleasant and cooperative. In the ED, she underwent CT head, and CTA of head and neck, both were negative. She was hypokalemic with potassium 3.2. On my evaluation, patient is sitting up in bed, in no acute distress. She is pleasant and cooperative and answers questions appropriately. She reports that she has issues with remembering things, and "forgets a lot lately". She says that she has to write things down especially about upcoming appointments with her girlfriends. However denies any fevers, chills, chest pain, shortness of breath, palpitations, headaches. She denies any sick contacts. Denies any abdominal pain, nausea or vomiting. States that her appetite has been poor. She denies any dysuria, or issues with bowel movements. Had normal bowel movement yesterday. Full history obtained from patient, ED staff, and daughter Maria Luz over the phone. Admission Exam Per Admitting Provider General- No acute distress Head- atraumatic Eyes- PERRL, EOMI, ENT- decrease hearing function Neck- supple, no JVD Lungs- clear to auscultation Heart- regular rhythm; no murmur Abdomen- normal bowel sounds, soft, nontender Extremities- no calf tenderness, dark scab at left arm from the IV side Neuro- alert, oriented x 3; PERRL, EOMI; no facial palsy; no dysarthria Skin- warm & dry Principal Diagnosis (1) Depression with anxiety: (2) Altered mental status: (3) Hypokalemia: (4) Chronic atrial fibrillation: (5) Hypertension: (6) Dyslipidemia: (7) Bilateral carotid artery stenosis: (8) CKD (chronic kidney disease), stage III (9) Mastoid disorder: (10) Diastolic dysfunction: (11) Left arm bruises Discharge Exam Physical Exam: Elderly female, sitting up in bed, in no acute distress Constitutional: WD/WN, vitals as above no acute distress Eyes: PERRL, conjunctivae normal, anicteric sclerae EOM intact bilaterally ENMT: external ear and nose normal, oropharynx normal Neck: trachea midline, no thyromegaly normal visual inspection Respiratory: normal respiratory effort, lungs clear to auscultation Auscultation: + rhonchi (Mild diffuse on the left); no crackles and no wheezes Cardiovascular: no murmur Irregularly irregular Chest (Breasts): normal inspection of chest Gastrointestinal:normal bowel sounds, soft, nontender, no hepatosplenomegaly Inspection/Auscultation: abdomen normal to inspection; abdomen not distended Percussion/Palpation: no guarding and abdomen not rigid Musculoskeletal: No cyanosis or clubbing, extremities motor strength 5/5 Head/Neck/Chest: head atraumatic and neck supple Extremities: extremities normal to inspection Skin: no rashes, warm and dry Neurologic: PERRL, EOMI, accommodation nl, no face palsy, no dysarthria moves all extremities Psychiatric: A+Ox3, euthymic affect Lymphatic: no cervical lymphadenopathy Discharge Data Allergies Allergy/AdvReac Type Severity Reaction Status Date / Time No Known Allergies Allergy Unknown NONE Verified 11/27/19 11:21 Consultations 11/27/19 12:46 ED Decision to Admit Stat 11/28/19 10:21 Consult Case Management - Discharge Planning Routine 11/28/19 12:44 Consult Psychiatry Routine Ordered Studies 11/27/19 10:21 CT head/brain wo con Stat 11/27/19 10:27 CT angio head w con Stat CT angio neck with con Stat 11/27/19 18:55 MR brain wo con Routine CT SCAN OF THE BRAIN WITHOUT IV CONTRAST CLINICAL HISTORY: Strokelike symptoms. Change in mental status. Syncope. COMPARISON STUDY: No priors. TECHNIQUE: Unenhanced axial CT scan of the brain is performed from the vertex to the skull base. A dose lowering technique was utilized adhering to the principles of ALARA. FINDINGS: Brain parenchyma: There are age-related involutional changes noting mild subcortical and periventricular microangiopathic change. There is no hemorrhage, mass effect, or evidence of acute territorial ischemia by CT criteria. 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 Pablo-white matter differentiation is preserved. No extra-axial fluid collection is seen. Ventricles, sulci, cisterns: Prominent secondary to involutional change. Intracranial vasculature: There is atherosclerotic calcification of the cavernous carotid and vertebral arteries. Calvarium: Post craniectomy change noted in the right occipital bone. The calvarium is otherwise intact. Soft tissues: A 2.3 cm calcified sebaceous cyst is noted in the left frontal scalp. Sinuses and mastoids: The visualized paranasal sinuses are clear. There is a large right mastoid effusion. The left mastoid air cells are well pneumatized. Orbits: The bony orbits are grossly intact. There are bilateral ocular lens implants. IMPRESSION: There is no hemorrhage, mass effect, or evidence of acute territorial ischemia by CT criteria. ACT 112: Negative or not required by law. Electronically signed by: Jose Armando Toth M.D. 11/27/2019 10:46 AM Dictated: 11/27/19 1043 Transcribed: 11/27/[address] ANGIOGRAM OF THE BRAIN; CT ANGIOGRAM OF THE NECK CLINICAL HISTORY: Syncope. Change in mental status. COMPARISON STUDY: Unenhanced CT of the brain performed the same day 11/27/2019. TECHNIQUE: Following the IV administration of 119 of Optiray 320, CT angiogram of the head and neck was performed from the aortic arch to the vertex. Images are reviewed in the axial, sagittal, and coronal planes. 3-D MIPS images are created and assessed. IV contrast was administered without complication. All measurements were calculated based on NASCET criteria. A dose lowering technique was utilized adhering to the principles of ALARA. The examination is modestly degraded by motion artifact. CT DOSE: 1571.22 mGy.cm FINDINGS: Brain parenchyma: There is age-related involutional change noting mild subcortical and periventricular microangiopathic disease. There is no hemorrhage, mass effect, or evidence of acute territorial ischemia by CT criteria. There is no evidence of enhancing mass lesion on the angiogram phase images. The ventricles, sulci, and cisterns are prominent secondary to involutional change. Pablo-white matter differentiation is preserved. No extra- axial fluid collection is seen. Thoracic aorta: There is advanced atherosclerotic calcification of the thoracic aorta. Visualized portions of the thoracic aorta are normal in caliber. The aortic arch demonstrates standard 3-vessel anatomy. Right carotid arterial system: The right common carotid artery is widely patent, as are the right internal and external carotid arteries. There is tortuosity of the distal internal carotid artery. Left carotid arterial system: The left common carotid artery is widely patent, as are the left internal and external carotid arteries. Vertebral arteries: The vertebral arteries are widely patent and codominant. Subclavian arteries: Widely patent bilaterally. Intracranial vasculature: There is evidence carotid calcification of the cavern ous carotid and vertebral arteries. There is tortuosity of the cavernous carotid arteries. The internal carotid arteries are patent at the skull base, as are the anterior and middle cerebral arteries bilaterally. The vertebrobasilar system and posterior cerebral arteries are widely patent. The left vertebral artery is dominant. There is no aneurysm, high-grade stenosis, or focal vessel cut off see n throughout the intracranial circulation. Jugular veins: Patent bilaterally. Dural sinuses: Patent. Lung apices: Chronic interstitial change is noted in the upper lobes. The upper lobe lung parenchyma is otherwise clear as imaged. Soft tissues: A 2.3 cm calcified sebaceous cyst is noted in the left frontal scalp. The visualized pharyngeal soft tissues are normal in appearance noting angiographic phase technique. The oropharyngeal airway appears widely patent. The salivary and thyroid glands are normal in appearance. No cervical lymphadenopathy is seen. Skeletal structures: The skeletal structures are osteopenic. Post craniectomy change is noted in the right occipital bone. No destructive calvarial lesion is identified. The cervical spine is maintained noting multilevel spondylosis. No lytic or blastic lesion is seen. Sinuses and mastoids: The paranasal sinuses are clear. There is a large right mastoid effusion with fluid in the right middle ear. The left mastoid air cells are well pneumatized. IMPRESSION: 1. There is no hemorrhage, mass effect, or evidence of acute territorial ischemia by CT criteria noting angiographic phase technique. 2. Unremarkable CT and radiograph of the neck. 3. Unremarkable CT angiogram of the brain. 4. There is a large right mastoid effusion and fluid within the right middle ear. 5. Post craniectomy change is noted in the right occipital bone. ACT 112: Negative or not required by law. Electronically signed by: Jose Armando Toth M.D. 11/27/2019 10:59 AM Dictated: 11/27/19 1050 Transcribed: 11/27/[address] ANGIOGRAM OF THE BRAIN; CT ANGIOGRAM OF THE NECK CLINICAL HISTORY: Syncope. Change in mental status. COMPARISON STUDY: Unenhanced CT of the brain performed the same day 11/27/2019. TECHNIQUE: Following the IV administration of 119 of Optiray 320, CT angiogram of the head and neck was performed from the aortic arch to the vertex. Images are reviewed in the axial, sagittal, and coronal planes. 3-D MIPS images are cr eated and assessed. IV contrast was administered without complication. All measurements were calculated based on NASCET criteria. A dose lowering technique was utilized adhering to the principles of ALARA. The examination is modestly degraded by motion artifact. CT DOSE: 1571.22 mGy.cm FINDINGS: Brain parenchyma: There is age-related involutional change noting mild subcortical and periventricular microangiopathic disease. There is no hemorrhage, mass effect, or evidence of acute territorial ischemia by CT criteria. There is no evidence of enhancing mass lesion on the angiogram phase images. The ventricles, sulci, and cisterns are prominent secondary to involutional change. Pablo-white matter differentiation is preserved. No extra- axial fluid collection is seen. Thoracic aorta: There is advanced atherosclerotic calcification of the thoracic aorta. Visualized portions of the thoracic aorta are normal in caliber. The aortic arch demonstrates standard 3-vessel anatomy. Right carotid arterial system: The right common carotid artery is widely patent, as are the right internal and external carotid arteries. There is tortuosity of the distal internal carotid artery. Left carotid arterial system: The left common carotid artery is widely patent, as are the left internal and external carotid arteries. Vertebral arteries: The vertebral arteries are widely patent and codominant. Subclavian arteries: Widely patent bilaterally. Intracranial vasculature: There is evidence carotid calcification of the cavernous carotid and vertebral arteries. There is tortuosity of the cavernous carotid arteries. The internal carotid arteries are patent at the skull base, as are the anterior and middle cerebral arteries bilaterally. The vertebrobasilar system and posterior cerebral arteries are widely patent. The left vertebral artery is dominant. There is no aneurysm, high-grade stenosis, or focal vessel cut off seen throughout the intracranial circulation. Jugular veins: Patent bilaterally. Dural sinuses: Patent. Lung apices: Chronic interstitial change is noted in the upper lobes. The upper lobe lung parenchyma is otherwise clear as imaged. Soft tissues: A 2.3 cm calcified sebaceous cyst is noted in the left frontal scalp. The visualized pharyngeal soft tissues are normal in appearance noting angiographic phase technique. The oropharyngeal airway appears widely patent. The salivary and thyroid glands are normal in appearance. No cervical lymphadenopathy is seen. Skeletal structures: The skeletal structures are osteopenic. Post craniectomy change is noted in the right occipital bone. No destructive calvarial lesion is identified. The cervical spine is maintained noting multilevel spondylosis. No lytic or blastic lesion is seen. Sinuses and mastoids: The paranasal sinuses are clear. There is a large right mastoid effusion with fluid in the right middle ear. The left mastoid air cells are well pneumatized. IMPRESSION: 1. There is no hemorrhage, mass effect, or evidence of acute territorial ischemia by CT criteria noting angiographic phase technique. 2. Unremarkable CT and radiograph of the neck. 3. Unremarkable CT angiogram of the brain. 4. There is a large right mastoid effusion and fluid within the right middle ear. 5. Post craniectomy change is noted in the right occipital bone. ACT 112: Negative or not required by law. Electronically signed by: Jose Armando Toth M.D. 11/27/2019 10:59 AM Dictated: 11/27/19 1050 Transcribed: 11/27/19 105 SINGLE VIEW CHEST CLINICAL HISTORY: Dyspnea. Syncope. FINDINGS: An AP, portable, upright chest radiograph is compared to study dated 12/12/2008. Correlation is made with chest CT dated 02/12/2013. The examination is degraded by portable technique and patient rotation. The heart is enlarged notin g atherosclerotic calcification of the thoracic aorta. There is pulmonary vascular congestion. Changes of chronic interstitial lung disease appears progressive as compared to 2008. Small pleural effusions are suspected. Bibasilar opacities are noted. No pneumothorax is seen. The skeletal structures are osteopenic. The bony thorax is grossly intact. IMPRESSION: 1. Cardiomegaly with mild pulmonary vascular congestion. 2. Changes of chronic interstitial lung disease appears progressive as compared to 2008. 3. Suspect small pleural effusions. 4. Bibasilar airspace opacities likely represent atelectasis. Correlate clinically for evidence of a superimposed infectious/inflammatory pneumonitis. ACT 112: Negative or not required by law. Electronically signed by: Jose Armando Toth M.D. 11/27/2019 2:26 PM Dictated: 11/27/19 1424 Transcribed: 11/27/19 1424 MRI OF THE BRAIN WITHOUT CONTRAST CLINICAL HISTORY: altered mental status COMPARISON STUDY: Noncontrast head CT dated 11/27/2019 FINDINGS: Sagittal T1, axial diffusion, proton density and T2 weighted axial, coronal FLAIR, and axial T1-weighted images were acquired. No intra or extra-axial mass lesions are visualized Axial diffusion-weighted images reveal no evidence of acute or subacute infarction. There is no evidence of ventricular dilatation. Proton density T2-weighted and FLAIR images reveal minimal foci of increased T2 signal within the white matter, likely on a small vessel basis. There are no abnormal flow voids. There are foci of increased T2 signal within the right mastoid, likely inflammatory. There is a 22 mm sebaceous cyst within the left frontal scalp IMPRESSION: 1. No acute intracranial findings. 2. No evidence of acute or subacute infarction 3. No evidence of intracranial mass 4. Right mastoid effusion 5. 20 mm sebaceous cyst within the left frontal scalp ACT 112: Negative or not required by law. Electronically signed by: Kris Hernandez M.D. 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 No evidence of acute or subacute infarction. No evidence of intracranial mass No focal neuro deficit Resolved (3) Hypokalemia: Possible secondary to poor appetite, dehydration, Stable (4) Chronic atrial fibrillation: Rate rhythm control on metoprolol Continue Xarelto Patient follows with [facility] cardiology, Juan Snowden/Dr. 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 on CT head Patient had perforation of right eardrum a number of years back Ordered for Ciprodex drops on right ear complete 7 days tx Will need outpatient ENT evaluation Daughter updated (10) Diastolic dysfunction: No sign of volume overload Continue Lasix 5 times a week Left arm bruises Dark scab at the site of the IV access Denies any pain No drainage or erythema Will do tripple ointment BID for 5 days Advised pt/daughter to monitor the Left arm and if develops any redness and drainage to seek medical attention CODE STATUS DNR/DNI, DVT ppx: on Xarelto Disposition Stable to discharge home today Total Time Total Time Spent Total Time Spent (In Minutes): 35 minutes Total Time Includes: Examination of the Patient, Discharge Planning, Medication Reconciliation, Communication With Other Providers and Other Discharge Plan Discharge Items Patient Disposition: Home - Home Health Services Reason For Visit: SYNCOPE Discharge Diagnosis: Dizzy spell ,due to dehydration , resolved Depression , anxiety disorder Activity: Resume your previous activity Non-emergency contact: Primary Care Provider Call non-emergency contact if: you have any medication questions Follow-up/Referrals: Mary Wooten MD [Surgeon] - (Follow up with ENT for chronic rt sided ear drum perforation , mastoiditis ) Shama Hunter MD [Primary Care Provider] - 12/07/19 11:20 am (12/07/2019 11:20 AM Provider Shama Hunter MD Department General Internal Medicine [facility] ) Diet: Heart Healthy Addtl Attending Provider Instructions: Follow up with your primary care provider Dr. Hunter on 12/06 @ 11:20 AM Follow up with ENT Dr. Wooten (Please call to schedule for the appointment) follow up with psychiatry with [facility] for depression and Anxiety disorder Continue monitor your left arm and if develops any redness/tenderness, please seek medical attention Continue the ciprodex for 3 more days Fall precaution Pending Studies at Discharge: No Stand-Alone Forms: My U-NOTE, Smoking Cessation Medications and DC Order Prescriptions: New mirtazapine 15 mg Tablet 7.5 mg PO HS Qty: 30 RF: 3 Ciprodex 0.3-0.1 % Drops,Suspension 4 drp otic (ear) BID 7 Days Qty: 1 RF: 0 bacitracin 500 unit/gram ointment 1 appln TOP BID 5 Days Qty: 14 RF: 0 Continued furosemide 40 mg tablet 40 mg PO 5XWK RF: 0 felodipine 2.5 mg tablet extended release 24 hr 2.5 mg PO DAILY RF: 0 metoprolol succinate 100 mg tablet extended release 24 hr 150 mg PO DAILY RF: 0 potassium chloride 20 mEq tablet,ER particles/crystals 20 meq PO DAILY RF: 0 Centrum Silver 0.4-300-250 mg-mcg-mcg Tablet 1 tab PO DAILY RF: 0 Xarelto 15 mg tablet 15 mg PO QDD RF: 0 magnesium oxide 400 mg magnesium Tablet 400 mg PO DAILY RF: 0 Discharge Orders: Discharge Order (Routine); Ordered 12/02/19 Ordered By: Audrey Martinez/Other Patient Handouts: Your Body's Response to Anxiety Admission Data Admit Date/Time: 11/27/19 13:36 Attending Provider: Audrey Diamond Admit Provider: Hardeep Slater Primary Care Provider: Shama Hunter Other Providers: [facility] ; Hardeep Slater ; Magalis Ni ; Sameera Poon Other Interventions: Discharge Summary Assessment (RN) Last Done: 12/02/19 12:38 DC Date/Time DO NOT enter until pt leaves facility: 12/02/19 13:53
== END 2019-12-02 13:53 | disposition home health service (06) | DRG 880 ==
LOC: ED 10:17 → SUATTDRO 13:36 → 2S 13:36 → 3N 11-28 15:17

== ENCOUNTER 2021-09-19 16:01 | Observation (INO) ==
--- NOTE | 2021-09-19 16:49 | Emergency Department Note ---
History of Present Illness General Chief complaint: Dizziness Stated complaint: FALL Time Seen by Provider: 09/19/21 16:28 Source: patient Mode of arrival: EMS Limitations: no limitations History of Present Illness Provider complaint: dizziness, Fall Onset (ago): hour(s) Maximum Pain Intensity: 5 Associated symptoms: + denies other symptoms Treatments prior to arrival: none This is an 89-year-old female who presents emergency department complaining of dizziness and fall. Patient states last night she had an episode of dizziness in the middle the night. She did not get up or try to move as she was concerned she would fall. She states it seems slightly improved this morning although she still felt off. She did eat breakfast and lunch. This afternoon family came to visit morning to take her for dinner and she had worsening dizziness again. Patient does walk with her walker and she began to feel unsteady and off balance and slowly fell landing on the left side. Patient states she struck her elbow and her hip. With assistance she was able to be helped up and did take a few steps although states that it did cause pain of the left hip. Patient denies any prior injury to the left hip. She denies neck or back pain. Denies any loss of consciousness when she fell. Patient denies any accompanying headaches, vision changes, nausea or vomiting, chest pain, palpitations, shortness of breath. Daughter bedside states that Juan Snowden PA-C with cardiology had recently decreased her metoprolol. No other medication changes. No recent illness. Pt seen during a time of high acuity and national emergency pandemic while wearing PPE. Home Medications Medication Instructions Recorded Confirmed Type felodipine 2.5 mg tablet,extended 2.5 mg PO QAM 11/27/19 09/19/21 History release 24 hr rivaroxaban 15 mg tablet (Xarelto) 15 mg PO QDD 11/27/19 09/19/21 History rosuvastatin 20 mg tablet (Crestor) 10 mg PO QDD 08/23/20 09/19/21 History docusate sodium 100 mg capsule 100 mg PO DAILY 09/03/20 09/19/21 History (Colace) sennosides 8.6 mg-docusate sodium 1 tab-cap PO DAILY 09/03/20 09/19/21 History 50 mg tablet (Senna with Docusate Sodium) vit C 250 mg-vit E 90 mg-zinc 40 1 tab PO BIDM 09/03/20 09/19/21 History mg-copper 1 [id number] capsule (PreserVision AREDS-2) bupropion HCl 100 mg tablet,12 hr 100 mg PO DAILY 09/19/21 09/19/21 History sustained-release (Wellbutrin SR) escitalopram oxalate 20 mg tablet 20 mg PO QPM 09/19/21 09/19/21 History (Lexapro) metoprolol succinate 25 mg 12.5 mg PO DAILY 09/19/21 09/19/21 History tablet,extended release 24 hr (Toprol XL) multivitamin (Daily-Joaquim) 1 tab PO DAILY 09/19/21 09/19/21 History Allergies Allergy/AdvReac Type Severity Reaction Status Date / Time aspirin Allergy Intermediate Hives Verified 09/19/21 18:03 lisinopril Allergy Intermediate Hives Verified 09/19/21 18:03 losartan [From Cozaar] Allergy Intermediate Hives Verified 09/19/21 18:03 Past Med/Surg History Medical History (Updated 09/20/21 @ 14:45 by Arlin Ruiz DO) Bilateral carotid artery stenosis Chronic atrial fibrillation Chronic interstitial lung disease CKD (chronic kidney disease), stage III Diastolic dysfunction Dyslipidemia History of perforation of tympanic membrane Hypertension Mastoid disorder Senile osteoporosis Subclinical hypothyroidism Trigeminal neuralgia Surgical History History of uterine suspension procedure Status post craniectomy Family History Father Stroke at age 69 Mother , at age 85 Rheumatoid arthritis Social History Smoking Status: Never smoker Hx Alcohol Use: No Hx Substance Use: No Preferred Language: Ethiopian Communication Ability: Effective 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 Beliefs That Will Affect Care: None marital status: / Current Living Situation: Personal Care Facility Other Information That Helps Us Care for You: No Feels Safe at Home: Yes Safety Concerns: Feels Safe At This Time Assistive Devices: Walker Review of Systems A total of 10 systems reviewed and were otherwise negative All systems reviewed & are unremarkable except as noted in HPI & below Physical Exam Vital Signs Vital Signs - 24 hr 09/19/21 16:05 09/19/21 18:05 09/19/21 18:07 Temperature 36.8 C Temperature Source Oral Pulse Rate 60 Pulse Rate [Right Finger] 59 L 67 68 Pulse Rhythm Irregular Pulse Rhythm [Right Finger] Irregular Regular Regular Pulse Strength Normal Pulse Strength [Right Finger] Normal Normal Normal Respiratory Rate 19 72 H 18 Respiratory Effort / Characteristics Non-Labored Spontaneous Non-Labored Spontaneous Non-Labored Spontaneous Respiratory Depth Normal Normal Normal Respiratory Pattern Regular Regular Blood Pressure 199/95 H Blood Pressure [Left Arm] 167/100 H Blood Pressure [Right Arm] 199/95 H 203/90 H Blood Pressure Mean 129 Blood Pressure Mean [Left Arm] 122 Blood Pressure Mean [Right Arm] 129 127 Blood Pressure Position Lying Blood Pressure Position [Left Arm] Lying Blood Pressure Position [Right Arm] Lying Lying Pulse Oximetry 98 95 98 Oxygen Delivery Method Room Air Room Air Room Air Sepsis Recent Fever Within 48 Hours No Sepsis New/Unexplained Change in Mental Status No Sepsis Action Taken by Nursing No Action Required 09/19/21 19:12 09/19/21 20:00 09/19/21 21:00 Temperature Temperature Source Pulse Rate Pulse Rate [Right Finger] 83 62 70 Pulse Rhythm Pulse Rhythm [Right Finger] Regular Regular Pulse Strength Pulse Strength [Right Finger] Normal Normal Normal Respiratory Rate 19 17 17 Respiratory Effort / Characteristics Non-Labored Spontaneous Non-Labored Spontaneous Non-Labored Spontaneous Respiratory Depth Normal Normal Normal Respiratory Pattern Regular Blood Pressure Blood Pressure [Left Arm] 151/84 H 129/75 137/72 Blood Pressure [Right Arm] Blood Pressure Mean Blood Pressure Mean [Left Arm] 106 93 93 Blood Pressure Mean [Right Arm] Blood Pressure Position Blood Pressure Position [Left Arm] Lying Lying Blood Pressure Position [Right Arm] Pulse Oximetry 98 98 98 Oxygen Delivery Method Room Air Room Air Room Air Sepsis Recent Fever Within 48 Hours Sepsis New/Unexplained Change in Mental Status Sepsis Action Taken by Nursing GENERAL: alert, well appearing, well nourished, no distress, non-toxic EYE EXAM: normal conjunctiva, PERRL and EOM's grossly intact, no nystagmus OROPHARYNX: no exudate, no erythema, lips, buccal mucosa, and tongue normal and mucous membranes are moist NECK: supple, no nuchal rigidity, no adenopathy, non-tender LUNGS: Clear to auscultation. Normal chest wall mechanics, no w/r/r HEART: no murmurs, S1 normal and S2 normal ABDOMEN: abdomen soft, non-tender, normo-active bowel sounds, no masses, no r ebound or guarding. PELVIS: stable to compression, nontender with palpation BACK: Back is symmetrical on inspection and there is no deformity, no midline tenderness, no CVA tenderness. SKIN: no rashes and no bruising UPPER EXTREMITIES: upper extremities are grossly normal. FROM, nml pulses b/l. Small abrasion noted to left elbow, mild tenderness with palpation. No joint effusion. No edema LOWER EXTREMITIES: No pitting edema. FROM, nml pulses b/l. Pain with palpation over the left lateral hip, no obvious deformity, no leg shortening or external rotation. No other joint effusions or deformity distally. NEURO EXAM: Normal sensorium, cranial nerves II-XII grossly intact, normal speech, no gross weakness of arms, no gross weakness of legs. Gross sensation intact. Course Course 2021: Updated patient and daughter at bedside. They states she has a chronic middle ear effusion. She states she did have problems with her eardrum on that side. No recent problems with seasonal allergies or URI symptoms. UA still has not been collected. Patient states she still feels too dizzy to attempt standing and is concerned about also having pain at the hip despite a negative x-ray. Discussed with them additional inpatient evaluation and management, they feel this is the best plan as she is at risk of falling as she lives in a personal care facility. Administered Medications Bupropion HCl (Bupropion Sr 100 Mg Tabcr) 100 mg PO DAILY [facility] Stop: 10/20/21 08:59 Last Admin: 09/20/21 07:56 Dose: 100 mg Documented by: [id number] Felodipine (Felodipine 5 Mg Tabcr) 5 mg PO QAM [facility] Stop: 10/20/21 08:59 Last Admin: 09/20/21 07:56 Dose: 5 mg Documented by: [id number] Lactated Ringer's (Lr) 1,000 mls @ 50 mls/hr IV .Q20H ONE Stop: 09/20/21 17:38 Last Admin: 09/19/21 23:48 Dose: 50 mls/hr Documented by: [id number] Meclizine HCl (Meclizine 12.5 Mg Tab) 12.5 mg PO QID PRN PRN Reason: Dizziness or Vertigo Stop: 10/19/21 23:37 Last Admin: 09/20/21 07:56 Dose: 12.5 mg Documented by: [id number] Metoprolol Succinate (Metoprolol Succ 25mg Ext Rel Tab) 12.5 mg PO DAILY [facility] Stop: 10/20/21 08:59 Last Admin: 09/20/21 07:56 Dose: 12.5 mg Documented by: [id number] Multivitamins (Multivitamin Tab) 1 tab PO DAILY [facility] Stop: 10/20/21 08:59 Last Admin: 09/20/21 07:56 Dose: 1 tab Documented by: [id number] Senna/Docusate Sodium (Docusate Sodium/Senna 50/8.6mg Tab) 1 tab PO DAILY [facility] Stop: 10/20/21 08:59 Last Admin: 09/20/21 07:56 Dose: 1 tab Documented by: [id number] Discontinued Medications Hydralazine HCl (Hydralazine Hcl 20 Mg/Ml Vial) 10 mg IV NOW STA Stop: 09/19/21 18:07 Last Admin: 09/19/21 18:37 Dose: 10 mg Documented by: [id number] Ioversol (Optiray 320 125ml) 117 ml IV ONCE ONE Stop: 09/19/21 18:56 Last Admin: 09/19/21 18:56 Dose: 117 ml Documented by: [id number] Meclizine HCl (Meclizine Hcl 25 Mg Tab) 25 mg PO NOW STA Stop: 09/19/21 19:38 Last Admin: 09/19/21 19:59 Dose: 25 mg Documented by: [id number] Medical Decision Making Differential Diagnosis Differential diagnosis includes etiologies such as benign positional vertigo, dehydration, hypovolemia, anemia, tumor, infection, hypoglycemia, electrolyte abnormalities, cardiac sources, intracerebral event, toxicologic, neurologic, as well as others were entertained. Medical Records Attestation: I reviewed the patient's medical records. Home Medications Current Medication List: was personally reviewed by me Laboratory Data Attestation: I reviewed the patient's lab results. Result diagrams: 09/20/21 07:15 09/19/21 17:00 Lab Results 09/19/21 09/19/21 09/19/21 Range/Units 17:00 17:00 20:11 WBC 8.78 (4.8-10.8) K/uL RBC 4.24 (4.2-5.4) M/uL Hgb 13.6 (12.0-16.0) g/dL Hct 41.3 (37-47) % MCV 97.4 (80-100) fL MCH 32.1 (25-34) pg MCHC 32.9 (32-36) g/dL RDW Std Deviation 54.6 H (36.4-46.3) fL RDW Coeff of Serenity 15.2 H (11.5-14.5) % Plt Count 250 (130-400) K/uL MPV 11.2 H (7.4-10.4) fL Immature Gran % (Auto) 0.2 % Neut % (Auto) 64.9 % Lymph % (Auto) 21.6 % [place] % (Auto) 12.6 % Eos % (Auto) 0.5 % Baso % (Auto) 0.2 % Neut # (Auto) 5.69 (1.4-6.5) K/uL Lymph # (Auto) 1.90 (1.2-3.4) K/uL [place] # (Auto) 1.11 H (0.11-0.59) K/uL Eos # (Auto) 0.04 (0-0.5) K/uL Baso # (Auto) 0.02 (0-0.2) K/uL Immature Gran # (Auto) 0.02 (0.00-0.02) K/uL Sodium 139 (136-145) mmol/L Potassium 4.0 (3.5-5.1) mmol/L Chloride 104 (98-107) mmol/L Carbon Dioxide 31 (21-32) mmol/L Anion Gap 4 (3-11) BUN 13 (6-23) mg/dl Creatinine 1.06 (0.6-1.2) mg/dl Est Cr Clr Drug Dosing 27.1 ml/min Est GFR ( Amer) 53.9 ml/min Est GFR (Non-Af Amer) 46.5 ml/min BUN/Creatinine Ratio 12.3 (10-20) Glucose 85 (70-99(Fasting)) mg/dl Calcium 8.7 (8.5-10.1) mg/dl Magnesium 2.1 (1.7-2.4) mg/dl Total Bilirubin 0.6 (0.2-1.0) mg/dl AST 29 (13-39) U/L ALT 21 (7-52) U/L Alkaline Phosphatase 105 H (34-104) U/L Troponin I High Sens 5.9 (0-14) pg/ml Total Protein 6.8 (6.0-8.3) gm/dl Albumin 3.3 L (3.4-5.0) gm/dl Globulin 3.5 (2.5-4.0) gm/dl Albumin/Globulin Ratio 0.9 (0.9-2) Lipase 62 (11-82) U/L Adenovirus (PCR) Not Detected (NotDetected) B. pertussis DNA (PCR) Not Detected (NotDetected) B.parapertussis DNA PCR Not Detected (NotDetected) C. pneumoniae DNA (PCR) Not Detected (NotDetected) Coronavirus OC43 (PCR) Not Detected (NotDetected) Coronavirus HKU1 (PCR) Not Detected (NotDetected) Coronavirus 229E (PCR) Not Detected (NotDetected) SARS-CoV-2 (PCR) Not Detected (NotDetected) Coronavirus NL63 (PCR) Not Detected (NotDetected) Human Metapneumovir PCR Not Detected (NotDetected) Influenza Type A (PCR) Not Detected (NotDetected) Influenza Type B (PCR) Not Detected (NotDetected) M. pneumoniae (PCR) Not Detected (NotDetected) Parainfluenza 1 (PCR) Not Detected (NotDetected) Parainfluenza 2 (PCR) Not Detected (NotDetected) Parainfluenza 3 (PCR) Not Detected (NotDetected) Parainfluenza 4 (PCR) Not Detected (NotDetected) RSV (PCR) Not Detected (NotDetected) Entero/Rhino (PCR) Not Detected (NotDetected) Imaging Data Radiologist's Impression: Elbow X-Ray 09/19/21 16:42 LEFT ELBOW 3 VIEWS CLINICAL HISTORY: Fall with left elbow injury. FINDINGS: 3 views of the left elbow are correlated with radiographs of left forearm dated 12/17/2014. The skeletal structures are osteopenic. No fracture is identified. The joint spaces are maintained. The overlying soft tissues are normal as imaged. IMPRESSION: No acute bony abnormality is identified. Electronically signed by: Jose Armando Toth M.D. 09/19/2021 5:41 PM Head CTA 09/19/21 16:42 CT ANGIOGRAM OF THE BRAIN; CT ANGIOGRAM OF THE NECK CLINICAL HISTORY: Dizziness. COMPARISON STUDY: Unenhanced CT of the brain performed the same day 09/19/2021 CT angiogram of the head and neck dated 11/27/2019. TECHNIQUE: Following the IV administration of 119 of Optiray 320, CT angiogram of the head and neck was performed from the aortic arch to the vertex. Images are reviewed in the axial, sagittal, and coronal planes. 3-D MIPS images are created and assessed. IV contrast was administered without complication. All measurements were calculated based on NASCET criteria. A dose lowering technique was utilized adhering to the principles of ALARA. The examinations are modestly degraded by motion artifact. CT DOSE: 320.46 mGy.cm FINDINGS: Brain parenchyma: There is age-related involutional change noting moderate subcortical and periventricular microangiopathic disease. There is no evidence of hemorrhage, mass effect, or acute territorial ischemia noting angiographic phase technique. There is no evidence of enhancing mass lesion on the angiogram phase images. The ventricles, sulci, and cisterns are prominent secondary to involutional change. Pablo-white matter differentiation is preserved. No extra- axial fluid collection is seen. Thoracic aorta: There is advanced atherosclerotic calcification of the thoracic aorta. Visualized portions of the thoracic aorta are normal in caliber. The aortic arch demonstrates standard 3-vessel anatomy. Right carotid arterial system: The right common carotid artery is widely patent, as are the right internal and external carotid arteries. There is tortuosity of the distal internal carotid artery. Left carotid arterial system: The left common carotid artery is widely patent, as are the left internal and external carotid arteries. Vertebral arteries: The vertebral arteries are widely patent and codominant. Subclavian arteries: Widely patent bilaterally. Intracranial vasculature: There is evidence carotid calcification of the cavernous carotid and vertebral arteries. There is tortuosity of the cavernous carotid arteries. The internal carotid arteries are patent at the skull base, as are the anterior and middle cerebral arteries bilaterally. The vertebrobasilar system and posterior cerebral arteries are widely patent. The left vertebral artery is dominant. There is no aneurysm, high-grade stenosis, or focal vessel cut off seen throughout the intracranial circulation. Jugular veins: Patent bilaterally. Dural sinuses: Patent. Lung apices: Chronic interstitial change is noted in the upper lobes. The upper lobe lung parenchyma is otherwise clear as imaged. Soft tissues: A 2.3 cm calcified sebaceous cyst is noted in the left frontal scalp. The visualized pharyngeal soft tissues are normal in appearance noting angiographic phase technique. The oropharyngeal airway appears widely patent. The left lobe of the thyroid gland is diminutive. The salivary glands are normal in appearance. No cervical lymphadenopathy is seen. Skeletal structures: The skeletal structures are osteopenic. Post craniectomy change is noted in the right occipital bone. No destructive calvarial lesion is identified. The cervical spine is maintained noting multilevel spondylosis. No lytic or blastic lesion is seen. Sinuses and mastoids: The paranasal sinuses are clear. There is a large right mastoid effusion. Fluid is also seen in the right middle ear. The left mastoid air cells are well pneumatized. IMPRESSION: 1. There is no evidence of hemorrhage, mass effect, or acute territorial ischemia by CT criteria noting angiographic phase technique. 2. Unremarkable CT and angiogram of the neck. No change from 11/27/2019. 3. Unremarkable CT angiogram of the brain. No change from 11/27/2019. 4. There is a large right mastoid effusion as well as fluid within the right middle ear. ACT 112: Negative or not required by law. Electronically signed by: Jose Armando Toth M.D. 09/19/2021 7:16 PM Hip/Pelvis X-Ray 09/19/21 16:42 SINGLE VIEW PELVIS; 2 VIEWS LEFT HIP CLINICAL HISTORY: Fall. Left hip pain. FINDINGS: An AP view of the pelvis with AP and frog-leg views of the left hip ar e correlated with pelvic CT dated 09/03/2020. The skeletal structures are osteopenic. There is no radiographic evidence of acute fracture involving the hips or bony pelvis. A benign-appearing expansile lucent lesion in the left proximal femur is unchanged from previous. This was better assessed on the 09/03/[address] Moderate to advanced arthritic change and joint space narrowing is noted in both hips. A bone island is again seen in the intertrochanteric right femur. Sclerotic change is noted in the sacroiliac joints. Lumbosacral spondylosis is partially visualized. The overlying soft tiss ues are normal in appearance. There is no bowel obstruction. IMPRESSION: There is no radiographic evidence of acute fracture involving the hips or pelvis. Electronically signed by: Jose Armando Toth M.D. 09/19/2021 5:44 PM Neck CTA 09/19/21 16:42 CT ANGIOGRAM OF THE BRAIN; CT ANGIOGRAM OF THE NECK CLINICAL HISTORY: Dizziness. COMPARISON STUDY: Unenhanced CT of the brain performed the same day 09/19/2021 CT angiogram of the head and neck dated 11/27/2019. TECHNIQUE: Following the IV administration of 119 of Optiray 320, CT angiogram of the head and neck was performed from the aortic arch to the vertex. Images are reviewed in the axial, sagittal, and coronal planes. 3-D MIPS images are created and assessed. IV contrast was administered without complication. All measurements were calculated based on NASCET criteria. A dose lowering technique was utilized adhering to the principles of ALARA. The examinations are modestly degraded by motion artifact. CT DOSE: 320.46 mGy.cm FINDINGS: Brain parenchyma: There is age-related involutional change noting moderate subcortical and periventricular microangiopathic disease. There is no evidence of hemorrhage, mass effect, or acute territorial ischemia noting angiographic phase technique. There is no evidence of enhancing mass lesion on the angiogram phase images. The ventricles, sulci, and cisterns are prominent secondary to involutional change. Pablo-white matter differentiation is preserved. No extra- axial fluid collection is seen. Thoracic aorta: There is advanced atherosclerotic calcification of the thoracic aorta. Visualized portions of the thoracic aorta are normal in caliber. The aortic arch demonstrates standard 3-vessel anatomy. Right carotid arterial system: The right common carotid artery is widely patent, as are the right internal and external carotid arteries. There is tortuosity of the distal internal carotid artery. Left carotid arterial system: The left common carotid artery is widely patent, as are the left internal and external carotid arteries. Vertebral arteries: The vertebral arteries are widely patent and codominant. Subclavian arteries: Widely patent bilaterally. Intracranial vasculature: There is evidence carotid calcification of the cavernous carotid and vertebral arteries. There is tortuosity of the cavernous carotid arteries. The internal carotid arteries are patent at the skull base, as are the anterior and middle cerebral arteries bilaterally. The vertebrobasilar system and posterior cerebral arteries are widely patent. The left vertebral art antonio is dominant. There is no aneurysm, high-grade stenosis, or focal vessel cut off seen throughout the intracranial circulation. Jugular veins: Patent bilaterally. Dural sinuses: Patent. Lung apices: Chronic interstitial change is noted in the upper lobes. The upper lobe lung parenchyma is otherwise clear as imaged. Soft tissues: A 2.3 cm calcified sebaceous cyst is noted in the left frontal scalp. The visualized pharyngeal soft tissues are normal in appearance noting angiographic phase technique. The oropharyngeal airway appears widely patent. The left lobe of the thyroid gland is diminutive. The salivary glands are normal in appearance. No cervical lymphadenopathy is seen. Skeletal structures: The skeletal structures are osteopenic. Post craniectomy change is noted in the right occipital bone. No destructive calvarial lesion is identified. The cervical spine is maintained noting multilevel spondylosis. No lytic or blastic lesion is seen. Sinuses and mastoids: The paranasal sinuses are clear. There is a large right mastoid effusion. Fluid is also seen in the right middle ear. The left mastoid air cells are well pneumatized. IMPRESSION: 1. There is no evidence of hemorrhage, mass effect, or acute territorial ischemia by CT criteria noting angiographic phase technique. 2. Unremarkable CT and angiogram of the neck. No change from 11/27/2019. 3. Unremarkable CT angiogram of the brain. No change from 11/27/2019. 4. There is a large right mastoid effusion as well as fluid within the right middle ear. ACT 112: Negative or not required by law. Electronically signed by: Jose Armando Toth M.D. 09/19/2021 7:[address] 09/19/21 16:43 CT SCAN OF THE BRAIN WITHOUT IV CONTRAST CLINICAL HISTORY: Fall. Dizziness. COMPARISON STUDY: CT of the brain dated 09/03/2020. TECHNIQUE: Unenhanced axial CT scan of the brain is performed from the vertex to the skull base. A dose lowering technique was utilized adhering to the principles of ALARA. CT DOSE: 614.27 mGy.cm FINDINGS: Brain parenchyma: There is age-related involutional change noting moderate patchy subcortical and periventricular microangiopathic disease. There is no hemorrhage, mass effect, or evidence of acute territorial ischemia by CT criteria. Pablo-white matter differentiation is preserved. No extra-axial fluid collection is seen. Ventricles, sulci, cisterns: Prominent secondary to involutional change. Intracranial vasculature: There is atherosclerotic calcification of the cavernous carotid and vertebral arteries. Calvarium: The skeletal structures are osteopenic. There is postoperative change from occipital craniectomy. No depressed calvarial fracture is identified. Soft tissues: A 2.3 cm calcified sebaceous cyst is again seen in the left frontal scalp. Sinuses and mastoids: The visualized paranasal sinuses are clear. There is a large right mastoid effusion. The left mastoid air cells are well pneumatized. Orbits: The bony orbits are grossly intact. There are bilateral ocular lens implants. IMPRESSION: There is no hemorrhage, mass effect, or evidence of acute territorial ischemia by CT criteria. ACT 112: Negative or not required by law. Electronically signed by: Jose Armando Toth M.D. 09/19/2021 6:45 PM ECG Data Attestation: I personally reviewed and interpreted this ECG as follows: Indication: + other Rate (beats per minute): 58 Rhythm: + atrial fibrillation ECG Intervals/blocks: + Normal QRS and + Normal QT ECG [place]: + Normal ECG ST segments: + Nonspecific ST abnormalities MDM Narrative This is an elderly female from a personal care facility who presents due to dizziness and fall. Patient with no prior history of vertigo. Patient found to have significantly elevated blood pressure on arrival and on subsequent rechecks. Labs are drawn and sent, x-ray imaging of patient's left elbow and hip performed due to concern for injury from the fall, and patient sent for CT imaging of her head. Patient was eventually given IV medication to help control her blood pressure. Patient was cautiously rehydrated as a precaution. Labs are reassuring, no evidence of acute traumatic injury on x-rays. CT and CT angiography of the head also reassuring. The effusion noted to the mastoid and middle ear likely chronic per patient and daughter's description at bedside. Despite meclizine and hydration, patient still felt too dizzy to attempt standing or ambulatory trial. Given she would not have any help at a personal care facility I do not feel this is safe discharge plan. It is possible patient's blood pressure contributed to her dizziness also. No evidence of hypertensive emergency. Case discussed with hospitalist for additional evaluation and management. Cath UA specimen still pending at this time. I did request nursing staff obtain this several times as patient had otherwise been incontinent in an adult diaper. Results were discussed with the patient and her daughter at bedside. They verbalized understanding and were in agreement with plan. Patient with chronic atrial fibrillation, this was again noted. No other ectopy or dysrhythmia noted. An order was placed for continuous cardiac monitoring. The monitor shows a rate of __60_ with _atrial fibrillation_ rhythm. Impression & Plan Dizziness, Hypertension, Acute pain of left hip, Ambulatory dysfunction Discharge Plan Visit Data Chief Complaint: Dizziness Stated Complaint: FALL ED Provider: Arlin Ruiz Discharge Problem: Dizziness, Hypertension, Acute pain of left hip, Ambulatory dysfunction Patient Disposition: Admitted As Inpatient Discharge Instructions Interventions: ED Discharge Assessment Last Done: 09/19/21 22:56 Discharge Problem: Hypertension Qualifiers: Hypertension type: primary hypertension Qualified Code(s): I10 - Essential (primary) hypertension
[2021-09-19 17:20] LABS: Basophils # (auto) 0.02 K/uL (0-0.2); Basophils % (auto) 0.2 %; Eosinophils # (auto) 0.04 K/uL (0-0.5); Eosinophils % (auto) 0.5 %; Hematocrit (blood only) 41.3 % (37-47); Hemoglobin 13.6 g/dL (12.0-16.0); Immature Granulocytes # (auto) 0.02 K/uL (0.00-0.02); Immature Granulocytes % (auto) 0.2 %; Lymphocytes % (auto) 21.6 %; Mean Corpuscular Hemoglobin 32.1 pg (25-34); Mean Corpuscular Hgb Conc 32.9 g/dL (32-36); Mean Corpuscular Volume 97.4 fL (80-100); Mean Platelet Volume 11.2 fL (7.4-10.4); Monocytes # (auto) 1.11 K/uL (0.11-0.59); Monocytes % (auto) 12.6 %; Neutrophils # (auto) 5.69 K/uL (1.4-6.5); Neutrophils % (auto) 64.9 %; Platelet Count 250 K/uL (130-400); RDW Coefficient of Variation 15.2 % (11.5-14.5); RDW Standard Deviation 54.6 fL (36.4-46.3); Red Blood Count 4.24 M/uL (4.2-5.4); White Blood Count 8.78 K/uL (4.8-10.8)
[2021-09-19 17:38] LABS: Troponin I High Sensitivity 5.9 pg/ml (0-14)
--- NOTE | 2021-09-19 17:42 | XRay Report ---
LEFT ELBOW 3 VIEWS CLINICAL HISTORY: Fall with left elbow injury. FINDINGS: 3 views of the left elbow are correlated with radiographs of left forearm dated 12/17/2014. T he skeletal structures are osteopenic. No fracture is identified. The joint spaces are maintained. Th e overlying soft tissues are normal as imaged. IMPRESSION: No acute bony abnormality is identified. Electronically signed by: Jose Armando Toth M.D. 09/19/2021 5:41 PM
[2021-09-19 17:47] LABS: Albumin Globulin Ratio 0.9 (0.9-2); Albumin Level 3.3 gm/dl (3.4-5.0); BUN Creatinine Ratio 12.3 (10-20); Bilirubin,Total 0.6 mg/dl (0.2-1.0); Calcium 8.7 mg/dl (8.5-10.1); Creatinine Clr Calc Pharmacy 27.1 ml/min; Est GFR (African American) 53.9 ml/min; Est GFR (Non-African American) 46.5 ml/min; Globulin 3.5 gm/dl (2.5-4.0); Magnesium 2.1 mg/dl (1.7-2.4); Total Protein 6.8 gm/dl (6.0-8.3)
--- NOTE | 2021-09-19 17:47 | XRay Report ---
SINGLE VIEW PELVIS; 2 VIEWS LEFT HIP CLINICAL HISTORY: Fall. Left hip pain. FINDINGS: An AP view of the pelvis with AP and frog-leg views of the left hip are correlated with pel merced CT dated 09/03/2020. The skeletal structures are osteopenic. There is no radiographic evidence of acute fracture involving the hips or bony pelvis. A benign-appearing expansile lucent lesion in the l eft proximal femur is unchanged from previous. This was better assessed on the 09/03/[address] M oderate to advanced arthritic change and joint space narrowing is noted in both hips. A bone island i s again seen in the intertrochanteric right femur. Sclerotic change is noted in the sacroiliac joints . Lumbosacral spondylosis is partially visualized. The overlying soft tissues are normal in appearanc e. There is no bowel obstruction. IMPRESSION: There is no radiographic evidence of acute fracture involving the hips or pelvis. Electronically signed by: Jose Armando Toth M.D. 09/19/2021 5:44 PM
[2021-09-19] MEDS ORDERED: hydrALAZINE HCL 20 MG/ML VIAL IV STA (18:06)
--- NOTE | 2021-09-19 18:47 | CT Scan Report ---
CT SCAN OF THE BRAIN WITHOUT IV CONTRAST CLINICAL HISTORY: Fall. Dizziness. COMPARISON STUDY: CT of the brain dated 09/03/2020. TECHNIQUE: Unenhanced axial CT scan of the brain is performed from the vertex to the skull base. A do se lowering technique was utilized adhering to the principles of ALARA. 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 There is no hemorrhage, mass effect, or evidence of acute terr itorial ischemia by CT criteria. Pablo-white matter differentiation is preserved. No extra-axial fluid collection is seen. Ventricles, sulci, cisterns: Prominent secondary to involutional change. Intracranial vasculature: There is atherosclerotic calcification of the cavernous carotid and vertebr al arteries. Calvarium: The skeletal structures are osteopenic. There is postoperative change from occipital crani ectomy. No depressed calvarial fracture is identified. Soft tissues: A 2.3 cm calcified sebaceous cyst is again seen in the left frontal scalp. Sinuses and mastoids: The visualized paranasal sinuses are clear. There is a large right mastoid effu carolyn. The left mastoid air cells are well pneumatized. Orbits: The bony orbits are grossly intact. There are bilateral ocular lens implants. IMPRESSION: There is no hemorrhage, mass effect, or evidence of acute territorial ischemia by CT rodriguez appiah. ACT 112: Negative or not required by law. Electronically signed by: Jose Armando Toth M.D. 09/19/2021 6:45 PM
[2021-09-19] MEDS ORDERED: OPTIRAY 320 125ml IV ONE (18:55)
--- NOTE | 2021-09-19 19:18 | CT Scan Report ---
CT ANGIOGRAM OF THE BRAIN; CT ANGIOGRAM OF THE NECK CLINICAL HISTORY: Dizziness. COMPARISON STUDY: Unenhanced CT of the brain performed the same day 09/19/2021 CT angiogram of the hea d and neck dated 11/27/2019. TECHNIQUE: Following the IV administration of 119 of Optiray 320, CT angiogram of the head and neck w as performed from the aortic arch to the vertex. Images are reviewed in the axial, sagittal, and augstin nal planes. 3-D MIPS images are created and assessed. IV contrast was administered without complicati on. All measurements were calculated based on NASCET criteria. A dose lowering technique was utilize d adhering to the principles of ALARA. The examinations are modestly degraded by motion artifact. CT DOSE: 320.46 mGy.cm FINDINGS: Brain parenchyma: There is age-related involutional change noting moderate subcortical and periventri cular microangiopathic disease. There is no evidence of hemorrhage, mass effect, or acute territorial ischemia noting angiographic phase technique. There is no evidence of enhancing mass lesion on the a ngiogram phase images. The ventricles, sulci, and cisterns are prominent secondary to involutional ch rula. Pablo-white matter differentiation is preserved. No extra-axial fluid collection is seen. Thoracic aorta: There is advanced atherosclerotic calcification of the thoracic aorta. Visualized por tions of the thoracic aorta are normal in caliber. The aortic arch demonstrates standard 3-vessel dorita zafar. Right carotid arterial system: The right common carotid artery is widely patent, as are the right int ernal and external carotid arteries. There is tortuosity of the distal internal carotid artery. Left carotid arterial system: The left common carotid artery is widely patent, as are the left email marketing intern al and external carotid arteries. Vertebral arteries: The vertebral arteries are widely patent and codominant. Subclavian arteries: Widely patent bilaterally. Intracranial vasculature: There is evidence carotid calcification of the cavernous carotid and verteb ral arteries. There is tortuosity of the cavernous carotid arteries. The internal carotid arteries ar e patent at the skull base, as are the anterior and middle cerebral arteries bilaterally. The vertebr obasilar system and posterior cerebral arteries are widely patent. The left vertebral artery is domin ant. There is no aneurysm, high-grade stenosis, or focal vessel cut off seen throughout the intracran ial circulation. Jugular veins: Patent bilaterally. Dural sinuses: Patent. Lung apices: Chronic interstitial change is noted in the upper lobes. The upper lobe lung parenchyma is otherwise clear as imaged. Soft tissues: A 2.3 cm calcified sebaceous cyst is noted in the left frontal scalp. The visualized ph aryngeal soft tissues are normal in appearance noting angiographic phase technique. The oropharyngeal airway appears widely patent. The left lobe of the thyroid gland is diminutive. The salivary glands are normal in appearance. No cervical lymphadenopathy is seen. Skeletal structures: The skeletal structures are osteopenic. Post craniectomy change is noted in the right occipital bone. No destructive calvarial lesion is identified. The cervical spine is maintained noting multilevel spondylosis. No lytic or blastic lesion is seen. Sinuses and mastoids: The paranasal sinuses are clear. There is a large right mastoid effusion. Fluid is also seen in the right middle ear. The left mastoid air cells are well pneumatized. IMPRESSION: 1. There is no evidence of hemorrhage, mass effect, or acute territorial ischemia by CT criteria noti ng angiographic phase technique. 2. Unremarkable CT and angiogram of the neck. No change from 11/27/2019. 3. Unremarkable CT angiogram of the brain. No change from 11/27/2019. 4. There is a large right mastoid effusion as well as fluid within the right middle ear. ACT 112: Negative or not required by law. Electronically signed by: Jose Armando Toth M.D. 09/19/2021 7:16 PM
[2021-09-19] MEDS ORDERED: MECLIZINE HCL 25 MG TAB PO STA (19:37)
[2021-09-19 21:09] LABS: Adenovirus PCR Not Detected (NotDetected); Bordetella parapertussis PCR Not Detected (NotDetected); Bordetella pertussis PCR Not Detected (NotDetected); Chlamydia pneumoniae PCR Not Detected (NotDetected); Coronavirus 229E PCR Not Detected (NotDetected); Coronavirus CoV-2 (COVID19)PCR Not Detected (NotDetected); Coronavirus HKU1 PCR Not Detected (NotDetected); Coronavirus NL63 PCR Not Detected (NotDetected); Coronavirus OC43PCR Not Detected (NotDetected); Human Metapneumovirus PCR Not Detected (NotDetected); Influenza A PCR Not Detected (NotDetected); Influenza B PCR Not Detected (NotDetected); Mycoplasma pneumoniae PCR Not Detected (NotDetected); Parainfluenza Virus 1 PCR Not Detected (NotDetected); Parainfluenza Virus 2 PCR Not Detected (NotDetected); Parainfluenza Virus 3 PCR Not Detected (NotDetected); Parainfluenza Virus 4 PCR Not Detected (NotDetected); Respiratory Syncytial VirusPCR Not Detected (NotDetected); Rhinovirus/Enterovirus PCR Not Detected (NotDetected)
--- NOTE | 2021-09-19 21:35 | History & Physical Report ---
Date of Service September 19, 2021 Assessment & Plan (1) Asymptomatic hypertensive urgency: Plan: Secondary to acute vertigo attack hx CAD/PVD diastolic dysfunction as per records (55 to 59%, TTE 2014), patient euvolemic to dry Afib on Xarelto interstitial pulmonary disease as per records, patient without pulmonary complaints anxiety/mood disorder, at baseline OBS Medical telemetry Meclizine as needed Titrate felodipine PT OT eval DVT prophylaxis. Xarelto DNR Patient requests for her daughter to be updated of progress. Ms. Maria Luz Sultana, contact #[phone]. Text document was generated using [employer] voice recognition software. It may contain grammatical or spelling errors. Kindly contact undersigned for clarification of any documentation item in question. History of Present Illness Chief Complaint: Dizziness, fall Primary Care Provider: Yasemin Cabello MD History obtained from patient and records. Medical history significant for CAD/PVD, diastolic dysfunction as per records (55 to 59%, TTE 2014), Afib on Xarelto, hypertension, interstitial pulmonary disease as per records, anxiety/mood disorder. Last confinement November 2019 for anxiety/depression. Patient seen at [facility] cardiology office 2 weeks ago on follow-up visit. Patient noted to be bradycardic. BP 116/68. Patient Toprol-XL decreased to 12.5 mg daily. Yesterday, patient woke up dizzy described as spinning lights. No headache symptoms. SBP 110s at assisted living facility. Patient denies headache, chest pain, SOB. Patient brought to the ER for evaluation. Initial SBP 200s upon arrival at the ER. IV hydralazine and meclizine administered at the ER. Patient currently comfortable. 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 Allergies Allergy/AdvReac Type Severity Reaction Status Date / Time aspirin Allergy Intermediate Hives Verified 09/19/21 18:03 lisinopril Allergy Intermediate Hives Verified 09/19/21 18:03 losartan [From Cozaar] Allergy Intermediate Hives Verified 09/19/21 18:03 Home Medications Medication Instructions Recorded Confirmed Type felodipine 2.5 mg tablet,extended 2.5 mg PO QAM 11/27/19 09/19/21 History release 24 hr rivaroxaban 15 mg tablet (Xarelto) 15 mg PO QDD 11/27/19 09/19/21 History rosuvastatin 20 mg tablet (Crestor) 10 mg PO QDD 08/23/20 09/19/21 History docusate sodium 100 mg capsule 100 mg PO DAILY 09/03/20 09/19/21 History (Colace) sennosides 8.6 mg-docusate sodium 1 tab-cap PO DAILY 09/03/20 09/19/21 History 50 mg tablet (Senna with Docusate Sodium) vit C 250 mg-vit E 90 mg-zinc 40 1 tab PO BIDM 09/03/20 09/19/21 History mg-copper 1 [id number] capsule (PreserVision AREDS-2) bupropion HCl 100 mg tablet,12 hr 100 mg PO DAILY 09/19/21 09/19/21 History sustained-release (Wellbutrin SR) escitalopram oxalate 20 mg tablet 20 mg PO QPM 09/19/21 09/19/21 History (Lexapro) metoprolol succinate 25 mg 12.5 mg PO DAILY 09/19/21 09/19/21 History tablet,extended release 24 hr (Toprol XL) multivitamin (Daily-Joaquim) 1 tab PO DAILY 09/19/21 09/19/21 History Past Med/Surg History Medical History (Updated 09/20/21 @ 08:12 by Haim Watts MD) Bilateral carotid artery stenosis Chronic atrial fibrillation Chronic interstitial lung disease CKD (chronic kidney disease), stage III Diastolic dysfunction Dyslipidemia History of perforation of tympanic membrane Hypertension Mastoid disorder Senile osteoporosis Subclinical hypothyroidism Trigeminal neuralgia Surgical History History of uterine suspension procedure Status post craniectomy Family History Father Stroke at age 69 Mother , at age 85 Rheumatoid arthritis Social History Smoking Status: Never smoker Hx Alcohol Use: No Hx Substance Use: No Preferred Language: Macedonian Communication Ability: Effective Tap Puller Required: No Beliefs That Will Affect Care: None marital status: Current Living Situation: Personal Care Facility Other Information That Helps Us Care for You: No Feels Safe at Home: Yes Safety Concerns: Feels Safe At This Time Assistive Devices: Denture - Upper, Glasses, Hearing Aid - Bilateral and Walker Review of Systems Review of Systems: As per HPI, all other systems reviewed and negative Physical Exam Physical Exam: GENERAL: Slightly uncomfortable, pleasant, frail, no respiratory distress SKIN: Normal color, warm HEENT: [place] palpebral conjunctivae, no ptosis, dry buccal mucosa NECK : Supple, no tenderness CHEST : CTA, no tenderness HEART : Irregular, no obvious murmurs ABDOMEN:no distention, nontender EXTREMITIES : No LE swelling/tenderness, no other conspicuous deformities noted NEUROLOGIC : Coherent, no facial asymmetry, gait and stance not assessed Results & Data Results & Data ([facility]) Vital Signs (Past 12 Hours) Vital Signs Temp Pulse Pulse Resp BP BP BP 09/19/21 21:00 70 17 137/72 09/19/21 20:00 62 17 129/75 09/19/21 19:12 83 19 151/84 H 09/19/21 18:07 68 18 167/100 H 09/19/21 18:05 67 72 H 203/90 H 09/19/21 16:05 36.8 C 60 59 L 19 199/95 H 199/95 H Pulse Ox 09/19/21 21:00 98 09/19/21 20:00 98 09/19/21 19:12 98 09/19/21 18:07 98 09/19/21 18:05 95 09/19/21 16:05 98 Laboratory Results Laboratory Results WBC 8.78 K/uL (4.8-10.8) 09/19/21 17:00 RBC 4.24 M/uL (4.2-5.4) 09/19/21 17:00 Hgb 13.6 g/dL (12.0-16.0) 09/19/21 17:00 Hct 41.3 % (37-47) 09/19/21 17:00 MCV 97.4 fL (80-100) 09/19/21 17:00 MCH 32.1 pg (25-34) 09/19/21 17:00 MCHC 32.9 g/dL (32-36) 09/19/21 17:00 RDW Std Deviation 54.6 fL (36.4-46.3) H 09/19/21 17:00 RDW Coeff of Serenity 15.2 % (11.5-14.5) H 09/19/21 17:00 Plt Count 250 K/uL (130-400) 09/19/21 17:00 MPV 11.2 fL (7.4-10.4) H 09/19/21 17:00 Immature Gran % (Auto) 0.2 % 09/19/21 17:00 Neut % (Auto) 64.9 % 09/19/21 17:00 Lymph % (Auto) 21.6 % 09/19/21 17:00 Frontier % (Auto) 12.6 % 09/19/21 17:00 Eos % (Auto) 0.5 % 09/19/21 17:00 Baso % (Auto) 0.2 % 09/19/21 17:00 Neut # (Auto) 5.69 K/uL (1.4-6.5) 09/19/21 17:00 Lymph # (Auto) 1.90 K/uL (1.2-3.4) 09/19/21 17:00 Frontier # (Auto) 1.11 K/uL (0.11-0.59) H 09/19/21 17:00 Eos # (Auto) 0.04 K/uL (0-0.5) 09/19/21 17:00 Baso # (Auto) 0.02 K/uL (0-0.2) 09/19/21 17:00 Immature Gran # (Auto) 0.02 K/uL (0.00-0.02) 09/19/21 17:00 Sodium 139 mmol/L (136-145) 09/19/21 17:00 Potassium 4.0 mmol/L (3.5-5.1) 09/19/21 17:00 Chloride 104 mmol/L (98-107) 09/19/21 17:00 Carbon Dioxide 31 mmol/L (21-32) 09/19/21 17:00 Anion Gap 4 (3-11) 09/19/21 17:00 BUN 13 mg/dl (6-23) 09/19/21 17:00 Creatinine 1.06 mg/dl (0.6-1.2) 09/19/21 17:00 Est Cr Clr Drug Dosing 27.1 ml/min 09/19/21 17:00 Est GFR ( Amer) 53.9 ml/min 09/19/21 17:00 Est GFR (Non-Af Amer) 46.5 ml/min 09/19/21 17:00 BUN/Creatinine Ratio 12.3 (10-20) 09/19/21 17:00 Glucose 85 mg/dl (70-99(Fasting)) 09/19/21 17:00 Calcium 8.7 mg/dl (8.5-10.1) 09/19/21 17:00 Magnesium 2.1 mg/dl (1.7-2.4) 09/19/21 17:00 Total Bilirubin 0.6 mg/dl (0.2-1.0) 09/19/21 17:00 AST 29 U/L (13-39) 09/19/21 17:00 ALT 21 U/L (7-52) 09/19/21 17:00 Alkaline Phosphatase 105 U/L (34-104) H 09/19/21 17:00 Troponin I High Sens 5.9 pg/ml (0-14) 09/19/21 17:00 Total Protein 6.8 gm/dl (6.0-8.3) 09/19/21 17:00 Albumin 3.3 gm/dl (3.4-5.0) L 09/19/21 17:00 Globulin 3.5 gm/dl (2.5-4.0) 09/19/21 17:00 Albumin/Globulin Ratio 0.9 (0.9-2) 09/19/21 17:00 Lipase 62 U/L (11-82) 09/19/21 17:00 Adenovirus (PCR) Not Detected (NotDetected) 09/19/21 20:11 B. pertussis DNA (PCR) Not Detected (NotDetected) 09/19/21 20:11 B.parapertussis DNA PCR Not Detected (NotDetected) 09/19/21 20:11 C. pneumoniae DNA (PCR) Not Detected (NotDetected) 09/19/21 20:11 Coronavirus OC43 (PCR) Not Detected (NotDetected) 09/19/21 20:11 Coronavirus HKU1 (PCR) Not Detected (NotDetected) 09/19/21 20:11 Coronavirus 229E (PCR) Not Detected (NotDetected) 09/19/21 20:11 SARS-CoV-2 (PCR) Not Detected (NotDetected) 09/19/21 20:11 Coronavirus NL63 (PCR) Not Detected (NotDetected) 09/19/21 20:11 Human Metapneumovir PCR Not Detected (NotDetected) 09/19/21 20:11 Influenza Type A (PCR) Not Detected (NotDetected) 09/19/21 20:11 Influenza Type B (PCR) Not Detected (NotDetected) 09/19/21 20:11 M. pneumoniae (PCR) Not Detected (NotDetected) 09/19/21 20:11 Parainfluenza 1 (PCR) Not Detected (NotDetected) 09/19/21 20:11 Parainfluenza 2 (PCR) Not Detected (NotDetected) 09/19/21 20:11 Parainfluenza 3 (PCR) Not Detected (NotDetected) 09/19/21 20:11 Parainfluenza 4 (PCR) Not Detected (NotDetected) 09/19/21 20:11 RSV (PCR) Not Detected (NotDetected) 09/19/21 20:11 Entero/Rhino (PCR) Not Detected (NotDetected) 09/19/21 20:11 Impressions Elbow X-Ray 09/19/21 16:42 LEFT ELBOW 3 VIEWS CLINICAL HISTORY: Fall with left elbow injury. FINDINGS: 3 views of the left elbow are correlated with radiographs of left forearm dated 12/17/2014. The skeletal structures are osteopenic. No fracture is identified. The joint spaces are maintained. The overlying soft tissues are normal as imaged. IMPRESSION: No acute bony abnormality is identified. Electronically signed by: Jose Armando Toth M.D. 09/19/2021 5:41 PM Head CTA 09/19/21 16:42 CT ANGIOGRAM OF THE BRAIN; CT ANGIOGRAM OF THE NECK CLINICAL HISTORY: Dizziness. COMPARISON STUDY: Unenhanced CT of the brain performed the same day 09/19/2021 CT angiogram of the head and neck dated 11/27/2019. TECHNIQUE: Following the IV administration of 119 of Optiray 320, CT angiogram of the head and neck was performed from the aortic arch to the vertex. Images are reviewed in the axial, sagittal, and coronal planes. 3-D MIPS images are created and assessed. IV contrast was administered without complication. All measurements were calculated based on NASCET criteria. A dose lowering technique was utilized adhering to the principles of ALARA. The examinations are modestly degraded by motion artifact. CT DOSE: 320.46 mGy.cm FINDINGS: Brain parenchyma: There is age-related involutional change noting moderate subcortical and periventricular microangiopathic disease. There is no evidence of hemorrhage, mass effect, or acute territorial ischemia noting angiographic phase technique. There is no evidence of enhancing mass lesion on the angiogram phase images. The ventricles, sulci, and cisterns are prominent secondary to involutional change. Pablo-white matter differentiation is preserved. No extra- axial fluid collection is seen. Thoracic aorta: There is advanced atherosclerotic calcification of the thoracic aorta. Visualized portions of the thoracic aorta are normal in caliber. The aortic arch demonstrates standard 3-vessel anatomy. Right carotid arterial system: The right common carotid artery is widely patent, as are the right internal and external carotid arteries. There is tortuosity of the distal internal carotid artery. Left carotid arterial system: The left common carotid artery is widely patent, as are the left internal and external carotid arteries. Vertebral arteries: The vertebral arteries are widely patent and codominant. Subclavian arteries: Widely patent bilaterally. Intracranial vasculature: There is evidence carotid calcification of the cavernous carotid and vertebral arteries. There is tortuosity of the cavernous carotid arteries. The internal carotid arteries are patent at the skull base, as are the anterior and middle cerebral arteries bilaterally. The vertebrobasilar system and posterior cerebral arteries are widely patent. The left vertebral artery is dominant. There is no aneurysm, high-grade stenosis, or focal vessel cut off seen throughout the intracranial circulation. Jugular veins: Patent bilaterally. Dural sinuses: Patent. Lung apices: Chronic interstitial change is noted in the upper lobes. The upper lobe lung parenchyma is otherwise clear as imaged. Soft tissues: A 2.3 cm calcified sebaceous cyst is noted in the left frontal scalp. The visualized pharyngeal soft tissues are normal in appearance noting angiographic phase technique. The oropharyngeal airway appears widely patent. The left lobe of the thyroid gland is diminutive. The salivary glands are normal in appearance. No cervical lymphadenopathy is seen. Skeletal structures: The skeletal structures are osteopenic. Post craniectomy change is noted in the right occipital bone. No destructive calvarial lesion is identified. The cervical spine is maintained noting multilevel spondylosis. No lytic or blastic lesion is seen. Sinuses and mastoids: The paranasal sinuses are clear. There is a large right mastoid effusion. Fluid is also seen in the right middle ear. The left mastoid air cells are well pneumatized. IMPRESSION: 1. There is no evidence of hemorrhage, mass effect, or acute territorial ischemia by CT criteria noting angiographic phase technique. 2. Unremarkable CT and angiogram of the neck. No change from 11/27/2019. 3. Unremarkable CT angiogram of the brain. No change from 11/27/2019. 4. There is a large right mastoid effusion as well as fluid within the right middle ear. ACT 112: Negative or not required by law. Electronically signed by: Jose Armando Toth M.D. 09/19/2021 7:16 PM Hip/Pelvis X-Ray 09/19/21 16:42 SINGLE VIEW PELVIS; 2 VIEWS LEFT HIP CLINICAL HISTORY: Fall. Left hip pain. FINDINGS: An AP view of the pelvis with AP and frog-leg views of the left hip are correlated with pelvic CT dated 09/03/2020. The skeletal structures are osteopenic. There is no radiographic evidence of acute fracture involving the hi ps or bony pelvis. A benign-appearing expansile lucent lesion in the left proximal femur is unchanged from previous. This was better assessed on the 09/03/[address] Moderate to advanced arthritic change and joint space narrowing is noted in both hips. A bone island is again seen in the intertrochanteric right femur. Sclerotic change is noted in the sacroiliac joints. Lumbosacral spondylosis is partially visualized. The overlying soft tissues are normal in appearance. There is no bowel obstruction. IMPRESSION: There is no radiographic evidence of acute fracture involving the hips or pelvis. Electronically signed by: Jose Armando Toth M.D. 09/19/2021 5:44 PM Neck CTA 09/19/21 16:42 CT ANGIOGRAM OF THE BRAIN; CT ANGIOGRAM OF THE NECK CLINICAL HISTORY: Dizziness. COMPARISON STUDY: Unenhanced CT of the brain performed the same day 09/19/2021 CT angiogram of the head and neck dated 11/27/2019. TECHNIQUE: Following the IV administration of 119 of Optiray 320, CT angiogram of the head and neck was performed from the aortic arch to the vertex. Images are reviewed in the axial, sagittal, and coronal planes. 3-D MIPS images are created and assessed. IV contrast was administered without complication. All measurements were calculated based on NASCET criteria. A dose lowering technique was utilized adhering to the principles of ALARA. The examinations are modestly degraded by motion artifact. CT DOSE: 320.46 mGy.cm FINDINGS: Brain parenchyma: There is age-related involutional change noting moderate subcortical and periventricular microangiopathic disease. There is no evidence of hemorrhage, mass effect, or acute territorial ischemia noting angiographic phase technique. There is no evidence of enhancing mass lesion on the angiogram phase images. The ventricles, sulci, and cisterns are prominent secondary to involutional change. Pablo-white matter differentiation is preserved. No extra- axial fluid collection is seen. Thoracic aorta: There is advanced atherosclerotic calcification of the thoracic aorta. Visualized portions of the thoracic aorta are normal in caliber. The aortic arch demonstrates standard 3-vessel anatomy. Right carotid arterial system: The right common carotid artery is widely patent, as are the right internal and external carotid arteries. There is tortuosity of the distal internal carotid artery. Left carotid arterial system: The left common carotid artery is widely patent, as are the left internal and external carotid arteries. Vertebral arteries: The vertebral arteries are widely patent and codominant. Subclavian arteries: Widely patent bilaterally. Intracranial vasculature: There is evidence carotid calcification of the cavernous carotid and vertebral arteries. There is tortuosity of the cavernous carotid arteries. The internal carotid arteries are patent at the skull base, as are the anterior and middle cerebral arteries bilaterally. The vertebrobasilar system and posterior cerebral arteries are widely patent. The left vertebral artery is dominant. There is no aneurysm, high-grade stenosis, or focal vessel cut off seen throughout the intracranial circulation. Jugular veins: Patent bilaterally. Dural sinuses: Patent. Lung apices: Chronic interstitial change is noted in the upper lobes. The upper lobe lung parenchyma is otherwise clear as imaged. Soft tissues: A 2.3 cm calcified sebaceous cyst is noted in the left frontal scalp. The visualized pharyngeal soft tissues are normal in appearance noting angiographic phase technique. The oropharyngeal airway appears widely patent. The left lobe of the thyroid gland is diminutive. The salivary glands are normal in appearance. No cervical lymphadenopathy is seen. Skeletal structures: The skeletal structures are osteopenic. Post craniectomy change is noted in the right occipital bone. No destructive calvarial lesion is identified. The cervical spine is maintained noting multilevel spondylosis. No lytic or blastic lesion is seen. Sinuses and mastoids: The paranasal sinuses are clear. There is a large right mastoid effusion. Fluid is also seen in the right middle ear. The left mastoid air cells are well pneumatized. IMPRESSION: 1. There is no evidence of hemorrhage, mass effect, or acute territorial ischemia by CT criteria noting angiographic phase technique. 2. Unremarkable CT and angiogram of the neck. No change from 11/27/2019. 3. Unremarkable CT angiogram of the brain. No change from 11/27/2019. 4. There is a large right mastoid effusion as well as fluid within the right middle ear. ACT 112: Negative or not required by law. Electronically signed by: Jose Armando Toth M.D. 09/19/2021 7:[address] 09/19/21 16:43 CT SCAN OF THE BRAIN WITHOUT IV CONTRAST CLINICAL HISTORY: Fall. Dizziness. COMPARISON STUDY: CT of the brain dated 09/03/2020. TECHNIQUE: Unenhanced axial CT scan of the brain is performed from the vertex to the skull base. A dose lowering technique was utilized adhering to the principles of ALARA. CT DOSE: 614.27 mGy.cm FINDINGS: Brain parenchyma: There is age-related involutional change noting moderate patchy subcortical and periventricular microangiopathic disease. There is no hemorrhage, mass effect, or evidence of acute territorial ischemia by CT criteria. Pablo-white matter differentiation is preserved. No extra-axial fluid collection is seen. Ventricles, sulci, cisterns: Prominent secondary to involutional change. Intracranial vasculature: There is atherosclerotic calcification of the cavernous carotid and vertebral arteries. Calvarium: The skeletal structures are osteopenic. There is postoperative change from occipital craniectomy. No depressed calvarial fracture is identified. Soft tissues: A 2.3 cm calcified sebaceous cyst is again seen in the left frontal scalp. Sinuses and mastoids: The visualized paranasal sinuses are clear. There is a large right mastoid effusion. The left mastoid air cells are well pneumatized. Orbits: The bony orbits are grossly intact. There are bilateral ocular lens implants. IMPRESSION: There is no hemorrhage, mass effect, or evidence of acute ter ritorial ischemia by CT criteria. ACT 112: Negative or not required by law. Electronically signed by: Jose Armando Toth M.D. 09/19/2021 6:45 PM Diagnostic Findings EKG as per my interpretation: Rate 55, A. fib, normal axis, T wave abnormalities inferior leads
[2021-09-19] MEDS ORDERED: LACTATED RINGER'S 1,000 ML IV ONE (21:39)
[2021-09-19] MEDS ORDERED: PROMETHAZINE HCL 6.25 MG in SODIUM CHLORIDE 0.9% 50 ML IV PRN (23:38)
[2021-09-19] MEDS ORDERED: ACETAMINOPHEN 325 MG TAB PO PRN (23:38)
[2021-09-20 04:53] LABS: Appearance Urine Clear (Clear); Bilirubin Urine Negative (Negative); Blood Urine Negative (Negative); Color Urine Yellow; Glucose Urine UA Negative (Negative); Ketones Urine Negative (Negative); Leukocyte Esterase Urine Negative (Negative); Nitrite Urine Negative (Negative); Protein Urine Negative (Negative); Specific Gravity Urine 1.035 (1.000-1.030); Urobilinogen Urine Negative (Negative)
[2021-09-20 07:55] LABS: Basophils # (auto) 0.01 K/uL (0-0.2); Basophils % (auto) 0.1 %; Eosinophils # (auto) 0.04 K/uL (0-0.5); Eosinophils % (auto) 0.5 %; Hematocrit (blood only) 37.7 % (37-47); Hemoglobin 12.3 g/dL (12.0-16.0); Immature Granulocytes # (auto) 0.01 K/uL (0.00-0.02); Immature Granulocytes % (auto) 0.1 %; Lymphocytes # (auto) 1.52 K/uL (1.2-3.4); Lymphocytes % (auto) 18.9 %; Mean Corpuscular Hemoglobin 31.6 pg (25-34); Mean Corpuscular Hgb Conc 32.6 g/dL (32-36); Mean Corpuscular Volume 96.9 fL (80-100); Mean Platelet Volume 11.5 fL (7.4-10.4); Monocytes % (auto) 11.2 %; Neutrophils # (auto) 5.55 K/uL (1.4-6.5); Neutrophils % (auto) 69.2 %; Platelet Count 243 K/uL (130-400); RDW Coefficient of Variation 15.3 % (11.5-14.5); RDW Standard Deviation 54.3 fL (36.4-46.3); Red Blood Count 3.89 M/uL (4.2-5.4); White Blood Count 8.03 K/uL (4.8-10.8)
[2021-09-20] MEDS: MECLIZINE 12.5 MG TAB PO PRN ×3 (07:56→23:56)
[2021-09-20] MEDS: DOCUSATE SODIUM/SENNA 50/8.6MG TAB PO SCH (07:56)
[2021-09-20] MEDS: buPROPion SR 100 MG TABCR PO SCH (07:56)
[2021-09-20] MEDS: METOPROLOL SUCC 25MG EXT REL TAB PO SCH (07:56)
[2021-09-20] MEDS: MULTIVITAMIN TAB PO SCH (07:56)
[2021-09-20] MEDS: FELODIPINE 5 MG TABCR PO SCH (07:56)
--- NOTE | 2021-09-20 12:15 | Electrocardiogram Report ---
Test Reason : Blood Pressure : / mmHG Vent. Rate : 058 BPM Atrial Rate : 045 BPM P-R Int : 000 ms QRS Dur : 088 ms QT Int : 448 ms P-R-T Axes : 000 051 029 degrees QTc Int : 439 ms Atrial fibrillation with slow ventricular response Abnormal ECG When compared with ECG of 03-SEP-2020 09:30, Nonspecific T wave abnormality no longer evident in Lateral leads Confirmed by Tray Montelongo ([id number]) on 09/20/2021 12:14:53 PM Referred By: Yasemin Cabello Confirmed By:Tray Montelongo
--- NOTE | 2021-09-20 14:04 | Hospitalist Progress Note ---
Date of Service September 20, 2021 Assessment & Plan (1) Asymptomatic hypertensive urgency: Plan: Secondary to acute vertigo attack Blood pressure seems to be stable Vertigo could be secondary to postural hypotension Will get orthostatic vitals every shift Advised to drink more fluid Dizziness Likely secondary to postural hypotension Advised to drink more fluid PT OT evaluation Orthostatic vitals . (2) Diastolic dysfunction: Plan: No evidence of fluid overload (3) Chronic atrial fibrillation: Plan: Heart rate is controlled We will continue current medications (4) Chronic interstitial lung disease: Plan: Does not have any shortness of breath at rest and saturating normally (5) Depression with anxiety: Plan: No acute anxiety and/or depression We will continue current medications (6) CKD (chronic kidney disease), stage III: Plan: Monitor PRP DVT prophylaxis On Xarelto CODE STATUS DNR/DNI Admission and Anticipated Discharge Date Admission Date: September 19, 2021 Subjective 09/20/2021 The patient was seen and examined in medical telemetry unit She has been complaining of dizziness with ambulation but feels better following admission Blood pressure is controlled and remains hemodynamically stable at rest Will get orthostatic vitals Review of Systems Review of Systems: All systems reviewed and are unremarkable except as noted below Physical Exam Physical Exam: Lying in bed comfortably Constitutional: average body habitus; not ill appearing Eyes: PERRL, conjunctivae normal, anicteric sclerae ENMT: external ear and nose normal, oropharynx normal Neck: trachea midline, no thyromegaly Respiratory: no respiratory distress Auscultation: + diminished lung sounds and + crackles (Minimal bibasilar crackles) Cardiovascular: Rate/Rhythm: regular rate and regular rhythm; not tachycardic Heart Sounds: normal S1, normal S2 and + murmur (2/6 ESM over precordium) Extremities: no edema Gastrointestinal (Abdomen): Inspection/Auscultation: normal bowel sounds; abdomen not distended Percussion/Palpation: abdomen soft; abdomen nontender Musculoskeletal: No acute arthritis in any joint Neurologic: Alert, awake and oriented x3. No focal sensory or no motor deficit appreciated Psychiatric: A+Ox3, euthymic affect Lymphatic: no cervical or axillary lymphadenopathy Results & Data Results & Data ([facility]) Vital Signs (Past 12 Hours) Vital Signs Temp Pulse Pulse Resp BP BP Pulse Ox 09/20/21 11:17 36.8 C 73 18 93 09/20/21 07:24 68 09/20/21 07:13 37.3 C 71 18 135/71 94 09/20/21 05:00 36.7 C 66 18 131/71 95 Laboratory Results Short CBC 09/19/21 09/20/21 Range/Units 17:00 07:15 WBC 8.78 8.03 (4.8-10.8) K/uL Hgb 13.6 12.3 (12.0-16.0) g/dL Hct 41.3 37.7 (37-47) % Plt Count 250 243 (130-400) K/uL BMP 09/19/21 17:00 Sodium 139 Potassium 4.0 Chloride 104 Carbon Dioxide 31 BUN 13 Creatinine 1.06 Glucose 85 Calcium 8.7 Liver Function 09/19/21 Range/Units 17:00 Total Bilirubin 0.6 (0.2-1.0) mg/dl AST 29 (13-39) U/L ALT 21 (7-52) U/L Alkaline Phosphatase 105 H (34-104) U/L Albumin 3.3 L (3.4-5.0) gm/dl Urine 09/20/21 Range/Units 04:18 Urine Color Yellow Urine Appearance Clear (Clear) Urine pH 8.0 H (4.5-7.5) Ur Specific [place] 1.035 H (1.000-1.030) Urine Protein Negative (Negative) Urine Glucose (UA) Negative (Negative) Medications Administered Current Inpatient Medications Acetaminophen (Acetaminophen 325 Mg Tab) 650 mg PO Q4H PRN PRN Reason: Pain or Fever Stop: 10/19/21 23:37 Bupropion HCl (Bupropion Sr 100 Mg Tabcr) 100 mg PO DAILY [facility] Stop: 10/20/21 08:59 Last Admin: 09/20/21 07:56 Dose: 100 mg Documented by: Escitalopram Oxalate (Escitalopram Oxalate 20 Mg Tab) 20 mg PO QPM [facility] Stop: 10/20/21 20:59 Felodipine (Felodipine 5 Mg Tabcr) 5 mg PO QAM [facility] Stop: 10/20/21 08:59 Last Admin: 09/20/21 07:56 Dose: 5 mg Documented by: Lactated Ringer's (Lr) 1,000 mls @ 50 mls/hr IV .Q20H ONE Stop: 09/20/21 17:38 Last Admin: 09/19/21 23:48 Dose: 50 mls/hr Documented by: Promethazine HCl 6.25 mg/ (Sodium Chloride) 50.25 mls @ 201 mls/hr IV Q6H PRN PRN Reason: Nausea And Vomiting Stop: 10/19/21 23:37 Meclizine HCl (Meclizine 12.5 Mg Tab) 12.5 mg PO QID PRN PRN Reason: Dizziness or Vertigo Stop: 10/19/21 23:37 Last Admin: 09/20/21 07:56 Dose: 12.5 mg Documented by: Metoprolol Succinate (Metoprolol Succ 25mg Ext Rel Tab) 12.5 mg PO DAILY [facility] Stop: 10/20/21 08:59 Last Admin: 09/20/21 07:56 Dose: 12.5 mg Documented by: Multivitamins (Multivitamin Tab) 1 tab PO DAILY [facility] Stop: 10/20/21 08:59 Last Admin: 09/20/21 07:56 Dose: 1 tab Documented by: Rivaroxaban (Rivaroxaban 15 Mg Tab) 15 mg PO QDD [facility] Stop: 10/20/21 16:29 Rosuvastatin Calcium (Rosuvastatin Calcium 10 Mg Tab) 10 mg PO QDD [facility] Stop: 10/20/21 16:29 Senna/Docusate Sodium (Docusate Sodium/Senna 50/8.6mg Tab) 1 tab PO DAILY [facility] Stop: 10/20/21 08:59 Last Admin: 09/20/21 07:56 Dose: 1 tab Documented by:
[2021-09-20] MEDS ORDERED: RIVAROXABAN 15 MG TAB PO SCH (16:30)
[2021-09-20] MEDS ORDERED: ROSUVASTATIN CALCIUM 10 MG TAB PO SCH (16:30)
[2021-09-20] MEDS ORDERED: ESCITALOPRAM OXALATE 20 MG TAB PO SCH (21:00)
[2021-09-21 07:43] LABS: Basophils # (auto) 0.03 K/uL (0-0.2); Basophils % (auto) 0.4 %; Eosinophils # (auto) 0.07 K/uL (0-0.5); Hematocrit (blood only) 37.7 % (37-47); Hemoglobin 12.5 g/dL (12.0-16.0); Immature Granulocytes # (auto) 0.01 K/uL (0.00-0.02); Immature Granulocytes % (auto) 0.1 %; Lymphocytes # (auto) 1.28 K/uL (1.2-3.4); Lymphocytes % (auto) 19.1 %; Mean Corpuscular Hemoglobin 31.4 pg (25-34); Mean Corpuscular Hgb Conc 33.2 g/dL (32-36); Mean Corpuscular Volume 94.7 fL (80-100); Mean Platelet Volume 11.2 fL (7.4-10.4); Monocytes % (auto) 13.4 %; Neutrophils # (auto) 4.42 K/uL (1.4-6.5); Platelet Count 224 K/uL (130-400); RDW Coefficient of Variation 15.4 % (11.5-14.5); RDW Standard Deviation 53.2 fL (36.4-46.3); Red Blood Count 3.98 M/uL (4.2-5.4); White Blood Count 6.71 K/uL (4.8-10.8)
[2021-09-21] MEDS: MULTIVITAMIN TAB PO SCH (07:55)
[2021-09-21] MEDS: FELODIPINE 5 MG TABCR PO SCH (07:55)
[2021-09-21] MEDS: MECLIZINE 12.5 MG TAB PO PRN ×2 (07:55→15:13)
[2021-09-21] MEDS: DOCUSATE SODIUM/SENNA 50/8.6MG TAB PO SCH (07:56)
[2021-09-21] MEDS: buPROPion SR 100 MG TABCR PO SCH (07:56)
[2021-09-21] MEDS: METOPROLOL SUCC 25MG EXT REL TAB PO SCH (07:56)
[2021-09-21 08:20] LABS: BUN Creatinine Ratio 14.3 (10-20); Calcium 8.4 mg/dl (8.5-10.1); Creatinine Clr Calc Pharmacy 23.2 ml/min; Est GFR (African American) 50.4 ml/min; Est GFR (Non-African American) 43.5 ml/min; Potassium 3.6 mmol/L (3.5-5.1)
--- NOTE | 2021-09-21 12:56 | Hospitalist Progress Note ---
Date of Service September 21, 2021 Assessment & Plan (1) Asymptomatic hypertensive urgency: Plan: Secondary to acute vertigo attack Blood pressure seems to be stable Vertigo could be secondary to postural hypotension Will get orthostatic vitals every shift Advised to drink more fluid Blood pressure remains stable but on the lower side Dizziness Likely secondary to postural hypotension Advised to drink more fluid PT OT evaluation Orthostatic vitals-no significant orthostasis Blood pressure remains on the lower side of normal without any symptom . (2) Diastolic dysfunction: Plan: No evidence of fluid overload (3) Chronic atrial fibrillation: Plan: Heart rate is controlled We will continue current medications (4) Chronic interstitial lung disease: Plan: Does not have any shortness of breath at rest and saturating normally No shortness of breath and no desaturation (5) Depression with anxiety: Plan: No acute anxiety and/or depression We will continue current medications (6) CKD (chronic kidney disease), stage III: Plan: Monitor PRP DVT prophylaxis On Xarelto CODE STATUS DNR/DNI Discharge this afternoon Admission and Anticipated Discharge Date Admission Date: September 19, 2021 Subjective 09/20/2021 The patient was seen and examined in medical telemetry unit She has been complaining of dizziness with ambulation but feels better following admission Blood pressure is controlled and remains hemodynamically stable at rest Will get orthostatic vitals 09/21/2021 The patient was seen and examined in medical telemetry unit She has been feeling much better and denies any dizziness even with ambulation She denies any chest pain and/or palpitation Her blood pressure remains controlled Review of Systems Review of Systems: All systems reviewed and are unremarkable except as noted below Physical Exam Physical Exam: Sitting on a chair without any acute distress Constitutional: average body habitus; not ill appearing Eyes: PERRL, conjunctivae normal, anicteric sclerae ENMT: external ear and nose normal, oropharynx normal Neck: trachea midline, no thyromegaly Respiratory: no respiratory distress Auscultation: + diminished lung sounds and + crackles (Minimal bibasilar crackles) Cardiovascular: Rate/Rhythm: regular rate and regular rhythm; not tachycardic Heart Sounds: normal S1, normal S2 and + murmur (2/6 ESM over precordium) Extremities: no edema Gastrointestinal (Abdomen): Inspection/Auscultation: normal bowel sounds; abdomen not distended Percussion/Palpation: abdomen soft; abdomen nontender Musculoskeletal: No acute arthritis in any joint Neurologic: Alert awake and oriented x3. Generally weak but no focal sensory or no motor deficit appreciated Psychiatric: A+Ox3, euthymic affect Lymphatic: no cervical or axillary lymphadenopathy Results & Data Results & Data ([facility]) Vital Signs (Past 12 Hours) Vital Signs Temp Pulse Pulse Resp BP Pulse Ox 09/21/21 11:34 36.7 C 67 16 106/63 93 09/21/21 10:28 64 09/21/21 07:56 36.9 C 84 16 131/73 97 Laboratory Results Short CBC 09/21/21 Range/Units 06:55 WBC 6.71 (4.8-10.8) K/uL Hgb 12.5 (12.0-16.0) g/dL Hct 37.7 (37-47) % Plt Count 224 (130-400) K/uL BMP 09/21/21 06:55 Sodium 140 Potassium 3.6 Chloride 107 Carbon Dioxide 30 BUN 16 Creatinine 1.12 Glucose 83 Calcium 8.4 L Medications Administered Current Inpatient Medications Acetaminophen (Acetaminophen 325 Mg Tab) 650 mg PO Q4H PRN PRN Reason: Pain or Fever Stop: 10/19/21 23:37 Bupropion HCl (Bupropion Sr 100 Mg Tabcr) 100 mg PO DAILY [facility] Stop: 10/20/21 08:59 Last Admin: 09/21/21 07:56 Dose: 100 mg Documented by: Escitalopram Oxalate (Escitalopram Oxalate 20 Mg Tab) 20 mg PO QPM [facility] Stop: 10/20/21 20:59 Last Admin: 09/20/21 19:27 Dose: 20 mg Documented by: Felodipine (Felodipine 5 Mg Tabcr) 5 mg PO QAM [facility] Stop: 10/20/21 08:59 Last Admin: 09/21/21 07:55 Dose: 5 mg Documented by: Promethazine HCl 6.25 mg/ (Sodium Chloride) 50.25 mls @ 201 mls/hr IV Q6H PRN PRN Reason: Nausea And Vomiting Stop: 10/19/21 23:37 Meclizine HCl (Meclizine 12.5 Mg Tab) 12.5 mg PO QID PRN PRN Reason: Dizziness or Vertigo Stop: 10/19/21 23:37 Last Admin: 09/21/21 07:55 Dose: 12.5 mg Documented by: Metoprolol Succinate (Metoprolol Succ 25mg Ext Rel Tab) 12.5 mg PO DAILY [facility] Stop: 10/20/21 08:59 Last Admin: 09/21/21 07:56 Dose: 12.5 mg Documented by: Multivitamins (Multivitamin Tab) 1 tab PO DAILY [facility] Stop: 10/20/21 08:59 Last Admin: 09/21/21 07:55 Dose: 1 tab Documented by: Rivaroxaban (Rivaroxaban 15 Mg Tab) 15 mg PO QDD [facility] Stop: 10/20/21 16:29 Last Admin: 09/20/21 15:50 Dose: 15 mg Documented by: Rosuvastatin Calcium (Rosuvastatin Calcium 10 Mg Tab) 10 mg PO QDD [facility] Stop: 10/20/21 16:29 Last Admin: 09/20/21 15:50 Dose: 10 mg Documented by: Senna/Docusate Sodium (Docusate Sodium/Senna 50/8.6mg Tab) 1 tab PO DAILY [facility] Stop: 10/20/21 08:59 Last Admin: 09/21/21 07:56 Dose: 1 tab Documented by:
--- NOTE | 2021-09-22 07:49 | Discharge Summary ---
Date of Service September 22, 2021 Admission HPI Per Admitting Provider History obtained from patient and records. Medical history significant for CAD/PVD, diastolic dysfunction as per records (55 to 59%, TTE 2014), Afib on Xarelto, hypertension, interstitial pulmonary disease as per records, anxiety/mood disorder. Last confinement November 2019 for anxiety/depression. Patient seen at [facility] cardiology office 2 weeks ago on follow-up visit. Patient noted to be bradycardic. BP 116/68. Patient Toprol-XL decreased to 12.5 mg daily. Yesterday, patient woke up dizzy described as spinning lights. No headache symptoms. SBP 110s at assisted living facility. Patient denies headache, chest pain, SOB. Patient brought to the ER for evaluation. Initial SBP 200s upon arrival at the ER. IV hydralazine and meclizine administered at the ER. Patient currently comfortable. 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 Admission Exam Per Admitting Provider Physical Exam: GENERAL: Slightly uncomfortable, pleasant, frail, no respiratory distress SKIN: Normal color, warm HEENT: [place] palpebral conjunctivae, no ptosis, dry buccal mucosa NECK : Supple, no tenderness CHEST : CTA, no tenderness HEART : Irregular, no obvious murmurs ABDOMEN:no distention, nontender EXTREMITIES : No LE swelling/tenderness, no other conspicuous deformities noted NEUROLOGIC : Coherent, no facial asymmetry, gait and stance not assessed Principal Diagnosis Hypertensive urgency-resolved, dizziness-resolved Discharge Exam Sitting on a chair without any acute distress Constitutional average body habitus; not ill appearing Eyes PERRL, conjunctivae normal, anicteric sclerae ENMT external ear and nose normal, oropharynx normal Neck trachea midline, no thyromegaly Respiratory no respiratory distress Auscultation: + diminished lung sounds and + crackles (Minimal bibasilar crackles) Cardiovascular Rate/Rhythm: regular rate and regular rhythm; not tachycardic Heart Sounds: normal S1, normal S2 and + murmur (2/6 ESM over precordium) Extremities: no edema Gastrointestinal (Abdomen) Inspection/Auscultation: normal bowel sounds; abdomen not distended Percussion/Palpation: abdomen soft; abdomen nontender Psychiatric A+Ox3, euthymic affect Lymphatic no cervical or axillary lymphadenopathy Discharge Data Allergies Allergy/AdvReac Type Severity Reaction Status Date / Time aspirin Allergy Intermediate Hives Verified 09/19/21 18:03 lisinopril Allergy Intermediate Hives Verified 09/19/21 18:03 losartan [From Cozaar] Allergy Intermediate Hives Verified 09/19/21 18:03 Consultations 09/19/21 21:45 ED Decision to Admit Stat Ordered Studies 09/19/21 16:42 CT angio head w con Stat CT angio neck with con Stat 09/19/21 16:43 CT head/brain wo con Stat Hospital Course (1) Asymptomatic hypertensive urgency: Secondary to acute vertigo attack Blood pressure seems to be stable Vertigo could be secondary to postural hypotension Will get orthostatic vitals every shift Advised to drink more fluid Blood pressure remains stable but on the lower side Dizziness Likely secondary to postural hypotension Advised to drink more fluid PT OT evaluation Orthostatic vitals-no significant orthostasis Blood pressure remains on the lower side of normal without any symptom . (2) Diastolic dysfunction: No evidence of fluid overload (3) Chronic atrial fibrillation: Heart rate is controlled We will continue current medications (4) Chronic interstitial lung disease: Does not have any shortness of breath at rest and saturating normally No shortness of breath and no desaturation (5) Depression with anxiety: No acute anxiety and/or depression We will continue current medications (6) CKD (chronic kidney disease), stage III: Monitor PRP DVT prophylaxis On Xarelto CODE STATUS DNR/DNI Discharge this afternoon Total Time Total Time Spent Total Time Spent (In Minutes): 35 minutes Discharge Plan Discharge Items Patient Disposition: Personal Residential Reason For Visit: HTN URG Discharge Diagnosis: Hypertensive urgency-resolved, dizziness-resolved Condition on Discharge: Fair Activity: Resume your previous activity Non-emergency contact: Primary Care Provider Call non-emergency contact if: you have any medication questions and your symptoms worsen Follow-up/Referrals: Yasemin Cabello MD [Primary Care Provider] - (Date & Time 10/10/2021 10:00 AM Provider Yasemin Garcia MD [facility], Assisted Living If an earlier opening becomes available, Dr Cabello's office will call you.) Diet: Heart Healthy Diet Texture: Easy to Chew Addtl Attending Provider Instructions: Please take precautions to avoid fall Take your time to start ambulation as advised Try to drink more fluid Pending Studies at Discharge: No Stand-Alone Forms: [email or web address], Smoking Cessation Skilled Items Patient informed of condition?: Yes DNR: Yes Discharge Level of Care: Other Communicable Disease: No Discharge Prognosis: Stable Lines: None Urinary Catheter: No Medications and DC Order Prescriptions: New meclizine 12.5 mg Tablet 12.5 mg PO QID PRN (Reason: dizziness) 15 Days Qty: 30 RF: 0 Continued felodipine 2.5 mg tablet extended release 24 hr 2.5 mg PO QAM RF: 0 Xarelto 15 mg tablet 15 mg PO QDD RF: 0 multivitamin [Daily-Joaquim] Tablet 1 tab PO DAILY RF: 0 bupropion HCl [Wellbutrin SR] 100 mg Tablet Sustained-Release 12 Hr 100 mg PO DAILY RF: 0 metoprolol succinate [Toprol XL] 25 mg Tablet Extended Release 24 Hr 12.5 mg PO DAILY RF: 0 escitalopram oxalate [Lexapro] 20 mg Tablet 20 mg PO QPM RF: 0 rosuvastatin [Crestor] 20 mg tablet 10 mg PO QDD RF: 0 PreserVision AREDS-2 250-90-40-1 mg Capsule 1 tab PO BIDM RF: 0 sennosides-docusate sodium [Senna with Docusate Sodium] 8.6-50 mg Tablet 1 tab-cap PO DAILY RF: 0 docusate sodium [Colace] 100 mg Capsule 100 mg PO DAILY RF: 0 Discharge Orders: Discharge Order (Routine); Ordered 09/21/21 Ordered By: Deepali Raphael Admission Data Admit Date/Time: 09/19/21 21:37 Attending Provider: Deepali Raphael Admit Provider: Haim Watts Primary Care Provider: Yasemin Cabello Other Providers: Haim Watts Other Interventions: Discharge Summary Assessment (RN) Last Done: 09/21/21 15:06
== END 2021-09-21 15:36 | disposition home or self-care (01) ==
LOC: ED 16:01 → 2N 16:01